=== PATIENT | female | born 1990 | race Caucasian/White ===

== ENCOUNTER 2018-03-22 09:37 | Emergency (ER) | payer BC ==
[2018-03-22 09:44] VITALS: BP 137/73; PULSE 85; RESP 18; TEMP 98.2
[2018-03-22] MEDS ORDERED: TOPICAL SKIN ADHESIVE 1 EACH AMP TOPICAL ONE ×2 (09:53→10:14)
[2018-03-22] MEDS ORDERED: DIPH,PERTUS(ACELL)TETVAC-LF 0.5 ML VIAL IM ONE (09:54)
--- NOTE | 2018-03-22 09:58 | ED ---
Wound/Laceration HPI - General Chief Complaint: Wound/Laceration Stated Complaint: Hand injury Time Seen by Provider: 03/22/18 09:50 Source: patient, RN notes reviewed, old records reviewed Mode of arrival: ambulatory Limitations: no limitations - History of Present Illness Initial Comments: This patient's a 27-year-old female presents emergency Department with left ankle index finger laceration. She reports that she cut her finger on glass. Patient states that she has full range of motion. No nail bed involvement.Patient denies any recent fever, chills, shortness of breath, chest pain, back pain, abdominal pain, nausea vomiting, numbness or tingling, dysuria or hematuria, constipation or diarrhea, headaches or visual changes, or any other current symptoms - Related Data Allergies Allergy/AdvReac Type Severity Reaction Status Date / Time morphine AdvReac Abdominal Verified 03/22/18 09:44 Pain Review of Systems ROS Statement: Those systems with pertinent positive or pertinent negative responses have been documented in the HPI. ROS Other: All systems not noted in ROS Statement are negative. Past Medical History Past Medical History: No Reported History History of Any Multi-Drug Resistant Organisms: None Reported Past Surgical History: No Surgical Hx Reported Past Psychological History: No Psychological Hx Reported Smoking Status: Current every day smoker Past Alcohol Use History: Occasional Past Drug Use History: None Reported General Exam - General Exam Comments Initial Comments: This is a 27-year-old female. Alert and oriented. No significant distress. Limitations: no limitations General appearance: alert, in no apparent distress Head exam: Present: atraumatic, normocephalic, normal inspection Eye exam: Present: normal appearance, PERRL, EOMI. Absent: scleral icterus, conjunctival injection, periorbital swelling ENT exam: Present: normal exam, mucous membranes moist Neck exam: Present: normal inspection. Absent: tenderness, meningismus, lymphadenopathy Respiratory exam: Present: normal lung sounds bilaterally. Absent: respiratory distress, wheezes, rales, rhonchi, stridor Cardiovascular Exam: Present: regular rate, normal rhythm, normal heart sounds. Absent: systolic murmur, diastolic murmur, rubs, gallop, clicks GI/Abdominal exam: Present: soft, normal bowel sounds. Absent: distended, tenderness, guarding, rebound, rigid Extremities exam: Present: normal inspection, full ROM, normal capillary refill. Absent: tenderness, pedal edema, joint swelling, calf tenderness Left Elbow exam: Present: normal inspection, full ROM Forearm Wrist exam: Present: normal inspection, full ROM Hand Wrist exam: Present: full ROM, laceration (Vision is a 1-2 cm superficial laceration over the distal left index finger. No nail bed involvement. Patient is neurovascularly intact.). Absent: normal inspection, tenderness, swelling, abrasion Neuro motor exam: Present: wrist extension intact Vascular: Present: normal capillary refill Back exam: Present: normal inspection Neurological exam: Present: alert, oriented X3, CN II-XII intact Psychiatric exam: Present: normal affect, normal mood Skin exam: Present: warm, dry, intact, normal color. Absent: rash Course Vital Signs 03/22/18 09:41 Temperature 98.2 F Pulse Rate 85 Respiratory 18 Rate Blood Pressure 137/73 O2 Sat by Pulse 98 Oximetry Procedures - Laceration Laceration #1 Site: hand (L index finger) Size (cm): 1 Description: linear Depth: simple, single layer Pre-repair: wound explored, irrigated extensively Type of Sutures: other (dermabond) Patient Tolerated Procedure: well, no complications Medical Decision Making - Medical Decision Making 27-year-old female presents with a left index finger laceration. Cut it on glass. Patient laceration superficial no concern for foreign body. We'll closes with Dermabond. Discussed monitoring for infection. She did soak her finger in warm water and Betadine. Patient was given updated today. Discussed appropriate follow-up. Disposition Clinical Impression: Laceration of index finger of left hand without complication Disposition: HOME SELF-CARE Condition: Good Instructions: Laceration (ED), Skin Adhesive Care (ED) Additional Instructions: Please leave wound covered for the first 24-48 hours and then leave open to air after that time. Please use clean soap and water to clean the area. Allow the skin glue to fall off on its own. Please watch for any signs of infection which may include but not limited to increased pain, swelling, redness, fever or chills. Please return to the emergency room if any signs of infection do occur. Please return to the emergency room for any other concerns or complications. Is patient prescribed a controlled substance at d/c from ED?: No When asked, does pt state using other controlled substances?: No If prescribed controlled substance>3 days was MAPS reviewed?: No If opioid is for acute pain is fill amount 7 days or less?: No If Rx opioid, was Start Talking consent form obtained?: No Referrals: None,Stated [Primary Care Provider] - 1-2 days Elizabeth Adamson MD [STAFF PHYSICIAN] - 1-2 days Time of Disposition: 09:57
== END 2018-03-22 10:22 | disposition home or self-care (01) ==
LOC: EC 09:37
DX: S61.211A Laceration without foreign body of left index finger without damage to nail, initial encounter (principal); F17.200 Nicotine dependence, unspecified, uncomplicated; Z23 Encounter for immunization; Z88.5 Allergy status to narcotic agent; W25.XXXA Contact with sharp glass, initial encounter
CPT/HCPCS: 12001; 90471; 90715; 99283

== ENCOUNTER 2018-08-10 11:24 | Emergency (ER) | payer BC ==
[2018-08-10 11:29] VITALS: TEMP 98.4
--- NOTE | 2018-08-10 11:57 | ED ---
General Adult HPI - General Chief complaint: Extremity Problem,Nontraumatic Stated complaint: Shoulder injury Time Seen by Provider: 08/10/18 11:34 Source: patient, RN notes reviewed Mode of arrival: ambulatory Limitations: no limitations - History of Present Illness Initial comments: Patient 27-year-old female presented to the emergency room today with a chief complaint of right shoulder pain. Does admit that 5 days ago was moving some boxes. Denies any specific injury or trauma. States that she did feel that there was some irritation by the end of night. 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 She does admit that she has felt some increased irritation at work. Patient states that she does have increased pain with any extension or abduction or shoulder height. Patient states that she's been trying anti- inflammatories for pain with some relief. Patient denies any other injury or any other complaints. Patient denies any recent fever, chills, shortness of breath, chest pain, back pain, abdominal pain, nausea or vomiting, numbness or tingling, headaches or visual changes, or any other complaints. - Related Data Home Medications Medication Instructions Recorded Confirmed Ibuprofen [Motrin Ib] 600 mg PO Q6H PRN 03/22/18 08/10/18 Allergies Allergy/AdvReac Type Severity Reaction Status Date / Time morphine AdvReac CONSTIPATIO Verified 08/10/18 11:43 N Review of Systems ROS Statement: Those systems with pertinent positive or pertinent negative responses have been documented in the HPI. ROS Other: All systems not noted in ROS Statement are negative. Past Medical History Past Medical History: No Reported History History of Any Multi-Drug Resistant Organisms: None Reported Past Surgical History: No Surgical Hx Reported Past Psychological History: No Psychological Hx Reported Smoking Status: Former smoker Past Alcohol Use History: Occasional Past Drug Use History: None Reported General Exam - General Exam Comments Initial Comments: General: The patient is awake and alert, in no distress, and does not appear acutely ill. Neck: The neck is supple, there is no tenderness or JVD. Cardiovascular: There is a regular rate and rhythm. No murmur, rub or gallop is appreciated. Respiratory: Lungs are clear to auscultation, respirations are non-labored, breath sounds are equal. No wheezes, stridor, rales, or rhonchi. Musculoskeletal: Patient does have normal appearance the right shoulder no obvious deformity. She shows limited range of motion due to pain. Pain is reproduced with extension and abduction greater than 90. Patient strength is 4 /5 due to pain. Patient sensations are intact. Radial pulses 2+. Lesions are intact. Sensations are intact. Neurological: A&O x 3. CN II-XII intact, There are no obvious motor or sensory deficits. Coordination appears grossly intact. Speech is normal. Skin: Skin is warm and dry and no rashes or lesions are noted. Psychiatric: Normal mood and affect. Limitations: no limitations Course Vital Signs 08/10/18 11:28 Temperature 98.4 F Pulse Rate 90 Respiratory 20 Rate Blood Pressure 113/75 O2 Sat by Pulse 98 Oximetry Medical Decision Making - Medical Decision Making Patient presenting for right shoulder pain is worse with movements. Does admit that she was moving boxes over the weekend. 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 She states pain is worse with movements. She tried anti-inflammatories at home. Denies any other injury. Options were discussed with patient about imaging here in the emergency room she has declined. She states she does not feel it is necessary. At this time is advised patient that she should continue anti-inflammatories will provide prescription for naproxen. She is advised to follow-up with orthopedics for the symptoms. Advised to try to rest area as much as possible. Advised return for any other concerns. Disposition Clinical Impression: Shoulder pain Disposition: HOME SELF-CARE Condition: Good Instructions: Tendinitis (ED) Additional Instructions: Please use medication as discussed. Please follow-up with orthopedic/family doctor in the next 2 days of symptoms have not improved. Please return to emergency room if the symptoms increase or worsen or for any other concerns. Is patient prescribed a controlled substance at d/c from ED?: No Referrals: None,Stated [Primary Care Provider] - 1-2 days Rudy Carroll MD [STAFF PHYSICIAN] - 1-2 days Zoë William MD [REFERRING] - 1-2 days Time of Disposition: 12:02
[2018-08-10 12:32] VITALS: BP 129/81; PULSE 89; RESP 18
== END 2018-08-10 12:30 | disposition home or self-care (01) ==
LOC: EC 11:24
DX: M25.511 Pain in right shoulder (principal); Z88.5 Allergy status to narcotic agent; Z87.891 Personal history of nicotine dependence; Z53.29 Procedure and treatment not carried out because of patient's decision for other reasons
CPT/HCPCS: 99283

== ENCOUNTER 2018-11-11 06:44 | Emergency (ER) | payer BC ==
--- NOTE | 2018-11-11 07:43 | ED ---
General Adult HPI - General Chief complaint: Back Pain/Injury Stated complaint: back pain Time Seen by Provider: 11/11/18 07:17 Source: patient, RN notes reviewed Mode of arrival: ambulatory Limitations: no limitations - History of Present Illness Initial comments: Patient is a pleasant 27-year-old female presenting to the emergency Department with low back pain. Patient did have similar symptoms once several months ago associated with urinary tract infection. Patient denies any dysuria or hematuria or frequency. No pelvic pain. No abdominal pain. No neck pain. No fevers. Patient states discomfort is positional. Discomfort is right lower back, Lumbar region. No incontinence or retention of bowel or bladder. No leg weakness. - Related Data Home Medications Medication Instructions Recorded Confirmed Ibuprofen [Motrin Ib] 600 mg PO Q6H PRN 03/22/18 11/11/18 Previous Rx's Medication Instructions Recorded Cyclobenzaprine [Flexeril] 10 mg PO TID PRN #12 tablet 11/11/18 Ibuprofen [Motrin] 600 mg PO Q6HR PRN #20 tab 11/11/18 Sulfamethox-Tmp 800-160Mg [Bactrim 1 each PO Q12HR #14 tab 11/11/18 DS 800-160 mg] Allergies Allergy/AdvReac Type Severity Reaction Status Date / Time morphine AdvReac CONSTIPATIO Verified 11/11/18 07:52 N Review of Systems ROS Statement: Those systems with pertinent positive or pertinent negative responses have been documented in the HPI. ROS Other: All systems not noted in ROS Statement are negative. Constitutional: Denies: fever, chills Eyes: Denies: eye pain ENT: Denies: ear pain Respiratory: Denies: cough, dyspnea Cardiovascular: Denies: chest pain Endocrine: Denies: fatigue Gastrointestinal: Denies: abdominal pain, nausea, vomiting Genitourinary: Denies: urgency, dysuria, frequency, hematuria Musculoskeletal: Reports: as per HPI, back pain Skin: Denies: rash Neurological: Denies: weakness Past Medical History Past Medical History: No Reported History History of Any Multi-Drug Resistant Organisms: None Reported Past Surgical History: No Surgical Hx Reported Past Psychological History: No Psychological Hx Reported Smoking Status: Former smoker Past Alcohol Use History: Occasional Past Drug Use History: Marijuana General Exam Limitations: no limitations General appearance: alert, in no apparent distress Head exam: Present: atraumatic Eye exam: Present: normal appearance, PERRL ENT exam: Present: normal oropharynx Neck exam: Present: normal inspection Respiratory exam: Present: normal lung sounds bilaterally Cardiovascular Exam: Present: regular rate, normal rhythm Expanded Peripheral pulses: 2+: Posterior Tibialis (R), Posterior Tibialis (L), Dorsalis Pedis (R), Dorsalis Pedis (L) GI/Abdominal exam: Present: soft, normal bowel sounds. Absent: distended, tenderness, guarding, rebound, rigid, pulsatile mass Extremities exam: Present: normal inspection. Absent: pedal edema, calf tenderness Back exam: Present: tenderness (Mild tenderness lower right paralumbar region) Neurological exam: Present: alert. Absent: motor sensory deficit Expanded Sensory exam: Lower Extremity Light Touch: Normal Motor strength exam: RLE: 5, LLE: 5 Psychiatric exam: Present: normal affect, normal mood Skin exam: Present: normal color Course Vital Signs 11/11/18 06:48 Temperature 98.3 F Pulse Rate 103 H Respiratory 18 Rate Blood Pressure 139/81 O2 Sat by Pulse 100 Oximetry Medical Decision Making - Medical Decision Making Patient reevaluated and updated. Patient will be treated with antibiotics for possible urinary tract infection. Patient symptoms are felt to likely be from muscular skeletal origin however. Patient is updated regarding this as well as need for follow-up. - Lab Data Lab Results 11/11/18 Range/Units 07:26 Urine Color Yellow Urine Appearance Cloudy H (Clear) Urine pH 6.5 (5.0-8.0) Ur Specific Ackerman 1.019 (1.001-1.035) Urine Protein Trace H (Negative) Urine Glucose (UA) Negative (Negative) Urine Ketones Negative (Negative) Urine Blood Trace H (Negative) Urine Nitrite Negative (Negative) Urine Bilirubin Negative (Negative) Urine Urobilinogen <2.0 (<2.0) mg/dL Ur Leukocyte Esterase Large H (Negative) Urine RBC 11 H (0-5) /hpf Ur Squamous Epith Cells 18 H (0-4) /hpf Urine Mucus Rare H (None) /hpf Disposition Clinical Impression: Low back pain Disposition: HOME SELF-CARE Condition: Stable Instructions (If sedation given, give patient instructions): Acute Low Back Pain (ED) Additional Instructions: Please follow-up with primary care physician in the beginning of the week. Have primary care physician follow-up regarding urine culture results. Return for loss of control of bowel or bladder, weakness, fevers, abdominal pain, worsening or changing symptoms or other concerns. Prescriptions: Cyclobenzaprine [Flexeril] 10 mg PO TID PRN #12 tablet PRN Reason: Pain Ibuprofen [Motrin] 600 mg PO Q6HR PRN #20 tab PRN Reason: Pain Sulfamethox-Tmp 800-160Mg [Bactrim DS 800-160 mg] 1 each PO Q12HR #14 tab Is patient prescribed a controlled substance at d/c from ED?: No Referrals: Elizabeth Adamson MD [STAFF PHYSICIAN] - 1-2 days Time of Disposition: 08:26
[2018-11-11 07:44] LABS: Appearance,Urine Cloudy (Clear); Bilirubin,Urine Negative (Negative); Blood,Urine Trace (Negative); Color,Urine Yellow; Glucose,Urine (UA) Negative (Negative); Ketones,Urine Negative (Negative); Leukocyte Esterase,Urine Large (Negative); Mucus,Urine Rare /hpf; Nitrite,Urine Negative (Negative); PH, Urine 6.5 (5.0-8.0); Protein,Urine Trace (Negative); RBC,Urine 11 /hpf (0-5); Specific Gravity,Urine 1.019 (1.001-1.035); Squamous Epithelial Cell,Urine 18 /hpf (0-4); Urobilinogen,Urine <2.0 mg/dL (<2.0)
[2018-11-11] MEDS ORDERED: KETOROLAC 60 MG/2 ML VIAL IM STA (08:26)
[2018-11-11 08:48] VITALS: BP 136/75; PULSE 75; RESP 16; TEMP 98
== END 2018-11-11 08:46 | disposition home or self-care (01) ==
LOC: EC 06:44
DX: M54.5 Low back pain (principal); Z87.891 Personal history of nicotine dependence; Z88.5 Allergy status to narcotic agent
CPT/HCPCS: 81001; 87086; 99283; 96372; J1885

== ENCOUNTER 2020-08-19 07:28 | Emergency (ER) | payer BC ==
[2020-08-19] MEDS ORDERED: SODIUM CHLORIDE 0.9% 500 ML 500 ML IV STA (08:15)
[2020-08-19] MEDS ORDERED: KETOROLAC 15 MG/ML 1 ML VIAL IVP STA (08:15)
[2020-08-19 08:37] LABS: Basophils # (A) 0.1 k/uL (0-0.2); Basophils % (A) 1 %; Eosinophils # (A) 0.2 k/uL (0-0.7); Eosinophils % (A) 2 %; HCT 42.3 % (34.0-46.0); HGB 14.5 gm/dL (11.4-16.0); Lymphocytes # (A) 1.9 k/uL (1.0-4.8); Lymphocytes % (A) 19 %; MCH 29.7 pg (25.0-35.0); MCHC 34.3 g/dL (31.0-37.0); MCV 86.6 fL (80.0-100.0); Mean Platelet Volume 8.7; Monocytes # (A) 0.5 k/uL (0-1.0); Monocytes % (A) 5 %; Neutrophils # (A) 7.4 k/uL (1.3-7.7); Neutrophils % (A) 73 %; Platelet Count 225 k/uL (150-450); RBC 4.89 m/uL (3.80-5.40); RDW 12.4 % (11.5-15.5); WBC 10.2 k/uL (3.8-10.6)
[2020-08-19 08:42] LABS: Amorphous Sediment,Urine Rare /hpf; Appearance,Urine Clear (Clear); Bacteria,Urine Occasional /hpf; Bilirubin,Urine Negative (Negative); Blood,Urine Small (Negative); Color,Urine Light Yellow; Glucose,Urine (UA) Negative (Negative); Ketones,Urine Negative (Negative); Leukocyte Esterase,Urine Small (Negative); Mucus,Urine Rare /hpf; Nitrite,Urine Negative (Negative); PH, Urine 6.5 (5.0-8.0); Protein,Urine Negative (Negative); RBC,Urine 2 /hpf (0-5); Specific Gravity,Urine 1.011 (1.001-1.035); Squamous Epithelial Cell,Urine 5 /hpf (0-4); Urobilinogen,Urine <2.0 mg/dL (<2.0); WBC,Urine 4 /hpf (0-5)
[2020-08-19 08:45] LABS: ALT 17 U/L (4-34); AST 20 U/L (14-36); African American GFR (CKD) >90 (>60 ml/min/1.73 sqM); Alkaline Phosphatase 90 U/L (38-126); Anion Gap 7 mmol/L; Blood Urea Nitrogen 8 mg/dL (7-17); Carbon Dioxide 25 mmol/L (22-30); Chloride 107 mmol/L (98-107); Glucose 101 mg/dL (74-99); Lipase 405 U/L (23-300); Non-African American GFR(CKD) >90 (>60 ml/min/1.73 sqM); Potassium 4.1 mmol/L (3.5-5.1); Sodium 139 mmol/L (137-145); Total Bilirubin 0.5 mg/dL (0.2-1.3); Total Protein 7.2 g/dL (6.3-8.2)
--- NOTE | 2020-08-19 08:49 | ED ---
Abdominal Pain HPI - General Chief Complaint: Abdominal Pain Stated Complaint: back pain Time Seen by Provider: 08/19/20 07:46 Source: patient Mode of arrival: ambulatory Limitations: no limitations - History of Present Illness Initial Comments: Patient is a 29-year-old female presenting to the emergency Department with complaints of right upper quadrant and right flank pain that has been increasing over the past 3 days. Patient states she feels like the pain is underneath her right ribs and also extends to her right side into her right back. She denies any falls or injuries to her right ribs. She denies any abdominal surgeries. She denies being nauseous, vomiting no diarrhea. She states she has been slightly constipated but had a regular bowel movement this morning. She states her pain has been constant, currently rates 7/10. She does do some heavy lifting at work but she states this feels different. She denies history of kidney stones. She has no urinary complaints. She denies being . She has no further complaints at this time. Upon arrival to the ER her vital signs are stable. - Related Data Previous Rx's Medication Instructions Recorded Ibuprofen [Motrin] 600 mg PO Q6HR PRN #20 tab 11/11/18 Allergies Allergy/AdvReac Type Severity Reaction Status Date / Time morphine AdvReac CONSTIPATIO Verified 08/19/20 07:41 N Review of Systems ROS Statement: Those systems with pertinent positive or pertinent negative responses have been documented in the HPI. ROS Other: All systems not noted in ROS Statement are negative. Past Medical History Past Medical History: No Reported History History of Any Multi-Drug Resistant Organisms: None Reported Past Surgical History: No Surgical Hx Reported Past Psychological History: No Psychological Hx Reported Smoking Status: Never smoker Past Alcohol Use History: Occasional Past Drug Use History: Marijuana General Exam - General Exam Comments Initial Comments: GENERAL: Patient is well-developed and well-nourished. Patient is nontoxic and in no acute distress. HEAD: Atraumatic, normocephalic. EYES: Pupils equal round and reactive to light, extraocular movements intact, sclera anicteric, conjunctiva are normal. Eyelids were unremarkable. ENT: TMs normal, nares patent, oropharynx clear without exudates. Moist mucous membranes. NECK: Normal range of motion, supple without lymphadenopathy or JVD. LUNGS: Unlabored respirations. Breath sounds clear to auscultation bilaterally and equal. No wheezes rales or rhonchi. HEART: Regular rate and rhythm without murmurs, rubs or gallops. ABDOMEN: Tender to palpation of the right upper quadrant, right side of the abdomen, right flank. Soft, normoactive bowel sounds. No guarding, no rebound. No masses appreciated. : Deferred MUSCULOSKELETAL: Normal extremities with adequate strength and normal range of motion, no pitting or edema. No clubbing or cyanosis. NEUROLOGICAL: Patient is alert and oriented x 3. Motor and sensory are also intact. Cranial nerves II through XII grossly intact. Symmetrical smile. Normal speech, normal gait. PSYCH: Normal mood, normal affect. SKIN: Warm, Dry, normal turgor, no rashes or lesions noted. Limitations: no limitations Course Vital Signs 08/19/20 07:38 Temperature 99.9 F H Pulse Rate 77 Respiratory 18 Rate Blood Pressure 118/73 O2 Sat by Pulse 99 Oximetry Medical Decision Making - Medical Decision Making Patient is a 29-year-old female here with right upper quadrant, right flank pain increasing over the past 3 days. Her vital signs are stable. Her labs reveal normal white count, kidney function is normal. Urine reveals a small amount of blood, rare bacteria, hCG is negative. Lipase is 405. CT shows no acute process at this time, no kidney stones, no acute cholecystitis. Patient is given some fluids, pain control, she is resting comfortably. I discussed these findings with the patient. I will give her referral for GI specialist to follow up regarding possible biliary colic. She can continue Tylenol or Motrin for discomfort. She is stable for discharge. Return parameters were discussed with the patient she verbalized understanding. Case discussed with Dr. Sanon. - Lab Data Result diagrams: 08/19/20 08:21 08/19/20 08:21 Lab Results 08/19/20 08/19/20 08/19/20 Range/Units 08:21 08:21 08:21 WBC 10.2 (3.8-10.6) k/uL RBC 4.89 (3.80-5.40) m/uL Hgb 14.5 (11.4-16.0) gm/dL Hct 42.3 (34.0-46.0) % MCV 86.6 (80.0-100.0) fL MCH 29.7 (25.0-35.0) pg MCHC 34.3 (31.0-37.0) g/dL RDW 12.4 (11.5-15.5) % Plt Count 225 (150-450) k/uL Neutrophils % 73 % Lymphocytes % 19 % Monocytes % 5 % Eosinophils % 2 % Basophils % 1 % Neutrophils # 7.4 (1.3-7.7) k/uL Lymphocytes # 1.9 (1.0-4.8) k/uL Monocytes # 0.5 (0-1.0) k/uL Eosinophils # 0.2 (0-0.7) k/uL Basophils # 0.1 (0-0.2) k/uL Sodium (137-145) mmol/L Potassium (3.5-5.1) mmol/L Chloride (98-107) mmol/L Carbon Dioxide (22-30) mmol/L Anion Gap mmol/L BUN (7-17) mg/dL Creatinine (0.52-1.04) mg/dL Est GFR (CKD-EPI)AfAm (>60 ml/min/1.73 sqM) Est GFR (CKD-EPI)NonAf (>60 ml/min/1.73 sqM) Glucose (74-99) mg/dL Calcium (8.4-10.2) mg/dL Total Bilirubin (0.2-1.3) mg/dL AST (14-36) U/L ALT (4-34) U/L Alkaline Phosphatase (38-126) U/L Total Protein (6.3-8.2) g/dL Albumin (3.5-5.0) g/dL Lipase (23-300) U/L Urine Color Light Yellow Urine Appearance Clear (Clear) Urine pH 6.5 (5.0-8.0) Ur Specific Carter 1.011 (1.001-1.035) Urine Protein Negative (Negative) Urine Glucose (UA) Negative (Negative) Urine Ketones Negative (Negative) Urine Blood Small H (Negative) Urine Nitrite Negative (Negative) Urine Bilirubin Negative (Negative) Urine Urobilinogen <2.0 (<2.0) mg/dL Ur Leukocyte Esterase Small H (Negative) Urine RBC 2 (0-5) /hpf Urine WBC 4 (0-5) /hpf Ur Squamous Epith Cells 5 H (0-4) /hpf Amorphous Sediment Rare H (None) /hpf Urine Bacteria Occasional H (None) /hpf Urine Mucus Rare H (None) /hpf Urine HCG, Qual Not Detected (Not Detectd) 08/19/20 Range/Units 08:21 WBC (3.8-10.6) k/uL RBC (3.80-5.40) m/uL Hgb (11.4-16.0) gm/dL Hct (34.0-46.0) % MCV (80.0-100.0) fL MCH (25.0-35.0) pg MCHC (31.0-37.0) g/dL RDW (11.5-15.5) % Plt Count (150-450) k/uL Neutrophils % % Lymphocytes % % Monocytes % % Eosinophils % % Basophils % % Neutrophils # (1.3-7.7) k/uL Lymphocytes # (1.0-4.8) k/uL Monocytes # (0-1.0) k/uL Eosinophils # (0-0.7) k/uL Basophils # (0-0.2) k/uL Sodium 139 (137-145) mmol/L Potassium 4.1 (3.5-5.1) mmol/L Chloride 107 (98-107) mmol/L Carbon Dioxide 25 (22-30) mmol/L Anion Gap 7 mmol/L BUN 8 (7-17) mg/dL Creatinine 0.44 L (0.52-1.04) mg/dL Est GFR (CKD-EPI)AfAm >90 (>60 ml/min/1.73 sqM) Est GFR (CKD-EPI)NonAf >90 (>60 ml/min/1.73 sqM) Glucose 101 H (74-99) mg/dL Calcium 9.0 (8.4-10.2) mg/dL Total Bilirubin 0.5 (0.2-1.3) mg/dL AST 20 (14-36) U/L ALT 17 (4-34) U/L Alkaline Phosphatase 90 (38-126) U/L Total Protein 7.2 (6.3-8.2) g/dL Albumin 4.0 (3.5-5.0) g/dL Lipase 405 H (23-300) U/L Urine Color Urine Appearance (Clear) Urine pH (5.0-8.0) Ur Specific Carter (1.001-1.035) Urine Protein (Negative) Urine Glucose (UA) (Negative) Urine Ketones (Negative) Urine Blood (Negative) Urine Nitrite (Negative) Urine Bilirubin (Negative) Urine Urobilinogen (<2.0) mg/dL Ur Leukocyte Esterase (Negative) Urine RBC (0-5) /hpf Urine WBC (0-5) /hpf Ur Squamous Epith Cells (0-4) /hpf Amorphous Sediment (None) /hpf Urine Bacteria (None) /hpf Urine Mucus (None) /hpf Urine HCG, Qual (Not Detectd) Disposition Clinical Impression: Right upper quadrant pain Disposition: HOME SELF-CARE Condition: Stable Instructions (If sedation given, give patient instructions): Abdominal Pain (ED) Additional Instructions: Please return to the Emergency Department if symptoms worsen or any other concerns. Alternate between Tylenol and Motrin for discomfort. Follow up with GI as discussed if symptoms persist. Is patient prescribed a controlled substance at d/c from ED?: No Referrals: None,Stated [Primary Care Provider] - 1-2 days Hayder Menon MD [STAFF PHYSICIAN] - 1-2 days
--- NOTE | 2020-08-19 08:58 | CT ---
EXAMINATION TYPE: CT abdomen pelvis wo con DATE OF EXAM: 08/19/2020 HISTORY: Rt flank pain CT DLP: 1464.4 mGycm. Automated Exposure Control for Dose Reduction was Utilized. TECHNIQUE: CT scan of the abdomen and pelvis is performed without oral or IV contrast. COMPARISON: NONE FINDINGS: Within the limitations of a non-contrast study, the following observations are made. LUNG BASES: No significant abnormality is appreciated. LIVER/GB: No significant abnormality is appreciated. PANCREAS: No significant abnormality is seen. SPLEEN: No significant abnormality is seen. ADRENALS: No significant abnormality is seen. KIDNEYS: No renal stones or hydronephrosis is present bilaterally. BOWEL: Appendix measures upper limits of normal size 5 to 6 mm coronal image 55, it is slightly poorl y defined but there is some artifact at this level related to patient's large body habitus. No defini tive surrounding fluid or fat stranding. No suspicious small or large bowel dilatation. GENITAL ORGANS: Anteverted uterus central metallic IUD. Left ovary is 3.9 cm low dense lesion probabl e ovarian cyst approximately 127 LYMPH NODES: No greater than 1cm abdominal or pelvic lymph nodes are appreciated. Some prominent but subcentimeter predominantly left-sided mesenteric lymph nodes. For reference 10 x 9 mm left mid to lo wer abdominal lymph node axial image 96 noted. OSSEOUS STRUCTURES: Slight levoconvex scoliotic curvature centered L4 level. Mild facet arthropathy l ower lumbar spine. OTHER: Tiny fat-containing umbilical hernia. IMPRESSION: No renal stones or hydronephrosis is seen bilaterally. No suspicious acute findings clear ly seen.
[2020-08-19 10:15] VITALS: BP 110/67; PULSE 67; RESP 14; TEMP 97.6
== END 2020-08-19 10:16 | disposition home or self-care (01) ==
LOC: EC 07:28
DX: R10.11 Right upper quadrant pain (principal); M54.9 Dorsalgia, unspecified; Z88.5 Allergy status to narcotic agent
CPT/HCPCS: 36415; 80053; 83690; 85025; 81001; 81025; 74176; 99284; 96374; J1885

== ENCOUNTER 2020-10-13 17:18 | Emergency (ER) | payer SELFPAY ==
[2020-10-13 17:34] VITALS: BP 111/68; PULSE 91; RESP 18; TEMP 98.4
[2020-10-13] MEDS ORDERED: IBUPROFEN 600 MG TAB PO STA (18:00)
[2020-10-13] MEDS ORDERED: PENICILLIN VK 500MG STARTER 4 TAB BTL PO STA (18:00)
--- NOTE | 2020-10-13 18:01 | ED ---
General Adult HPI - General Chief complaint: Dental/Oral Stated complaint: Dental Pain Time Seen by Provider: 10/13/20 17:38 Source: patient, RN notes reviewed Mode of arrival: ambulatory Limitations: no limitations - History of Present Illness Initial comments: 29-year-old female presents to the emergency room for dental pain. Patient reports she has had left lower dental pain for about 8 days now. States it is painful to bite down. She denies any swelling. She denies any difficulty swallowing, neck stiffness, or fevers. She states she did call one dentist who said it would be a while better and so has otherwise not had to follow-up. She does not currently have a dentist. Patient denies any chance of . Patient has no other complaints at this time including shortness of breath, chest pain, abdominal pain, nausea or vomiting, headache, or visual changes. - Related Data Previous Rx's Medication Instructions Recorded Ibuprofen [Motrin] 600 mg PO Q6HR PRN #20 tab 11/11/18 Penicillin V Potassium [Pen Vee K] 500 mg PO Q6H 10 Days #40 tablet 10/13/20 Allergies Allergy/AdvReac Type Severity Reaction Status Date / Time morphine AdvReac CONSTIPATIO Verified 10/13/20 17:32 N Review of Systems ROS Statement: Those systems with pertinent positive or pertinent negative responses have been documented in the HPI. ROS Other: All systems not noted in ROS Statement are negative. Past Medical History Past Medical History: No Reported History History of Any Multi-Drug Resistant Organisms: None Reported Past Surgical History: No Surgical Hx Reported Past Psychological History: No Psychological Hx Reported Smoking Status: Never smoker Past Alcohol Use History: Occasional Past Drug Use History: Marijuana General Exam Limitations: no limitations General appearance: alert, in no apparent distress Head exam: Present: atraumatic Eye exam: Present: normal appearance ENT exam: Present: mucous membranes moist. Absent: normal oropharynx (Patient has poor dentition noted. Tenderness noted to tooth 18 with palpation with tongue blade. No evidence for periapical abscess with direct visualization or palpation of gumline. No sublingual edema or facial edema.) Neck exam: Present: normal inspection, full ROM. Absent: tenderness, meningismus, lymphadenopathy Respiratory exam: Present: normal lung sounds bilaterally. Absent: respiratory distress Cardiovascular Exam: Present: regular rate, normal rhythm Neurological exam: Present: alert Course Vital Signs 10/13/20 17:32 Temperature 98.4 F Pulse Rate 91 Respiratory 18 Rate Blood Pressure 111/68 O2 Sat by Pulse 97 Oximetry Medical Decision Making - Medical Decision Making Vitals are stable. Patient is afebrile. She is well-appearing. Each time physical exam is documented. Denying . Patient will be started on penicillin and given a dose of Motrin here in the emergency room. I did give her dental referrals. She will return for any worsening symptoms which were discussed with her. Disposition Clinical Impression: Pain, dental Disposition: HOME SELF-CARE Condition: Good Instructions (If sedation given, give patient instructions): Toothache (ED) Additional Instructions: Please take Motrin and Tylenol for pain. Please ice the area as well. Take penicillin as directed. Follow-up with dentist as soon as possible. Return to the emergency room for any worsening symptoms. [facility] [address] (existing clients only) New clients: [phone] 1st consult: $50 (includes XRs) Usually 30% less than private dentist for visits after. [employer] Have to pay $50 for Xrays and rest is covered [phone] Prescriptions: Penicillin V Potassium [Pen Vee K] 500 mg PO Q6H 10 Days #40 tablet Is patient prescribed a controlled substance at d/c from ED?: No Referrals: Zoë William MD [REFERRING] - 1-2 days Time of Disposition: 18:01
== END 2020-10-13 18:16 | disposition home or self-care (01) ==
LOC: EC 17:18
DX: K08.89 Other specified disorders of teeth and supporting structures (principal); Z88.5 Allergy status to narcotic agent
CPT/HCPCS: 99282

== ENCOUNTER 2022-05-07 03:54 | Inpatient (IN) | payer OTHER ==
[2022-05-07] MEDS ORDERED: KETOROLAC 15 MG/ML 1 ML VIAL IVP STA (04:40)
[2022-05-07] MEDS ORDERED: ONDANSETRON 4 MG/2 ML VIAL IVP STA (04:40)
[2022-05-07] MEDS ORDERED: SODIUM CHLORIDE 0.9% 500 ML 500 ML IV STA (04:40)
--- NOTE | 2022-05-07 04:43 | ED ---
Abdominal Pain HPI - General Source: patient Mode of arrival: ambulatory Limitations: no limitations - History of Present Illness MD Complaint: abdominal pain Onset/Timin -: days(s) Location: L flank Migration to: no migration Severity: moderate Quality: cramping, aching Consistency: constant Improves With: nothing Worsens With: nothing Associated Symptoms: nausea, vomiting <Óscar Calvert - Last Filed: 05/07/22 07:07> <Micheal Gray - Last Filed: 05/07/22 08:47> - General Chief Complaint: Abdominal Pain Stated Complaint: Vomiting Blood, Discolored Urine, Headache Time Seen by Provider: 05/07/22 04:09 - Related Data Previous Rx's Medication Instructions Recorded Ibuprofen [Motrin] 600 mg PO Q6HR PRN #20 tab 11/11/18 Penicillin V Potassium [Pen Vee K] 500 mg PO Q6H 10 Days #40 tablet 10/13/20 Cephalexin [Keflex] 500 mg PO Q6HR #28 cap 05/07/22 Allergies Allergy/AdvReac Type Severity Reaction Status Date / Time milk Allergy Swelling Verified 05/07/22 04:04 morphine AdvReac CONSTIPATIO Verified 10/13/20 17:32 N Review of Systems ROS Other: All systems not noted in ROS Statement are negative. Constitutional: Reports: fever, chills Respiratory: Reports: cough. Denies: dyspnea Cardiovascular: Denies: chest pain, palpitations, edema Gastrointestinal: Reports: abdominal pain, nausea, vomiting. Denies: diarrhea, constipation, melena, hematochezia Genitourinary: Reports: dysuria, frequency. Denies: hematuria, discharge Musculoskeletal: Denies: back pain Skin: Denies: rash Neurological: Denies: headache, weakness, numbness <Óscar Calvert - Last Filed: 05/07/22 07:07> ROS Other: All systems not noted in ROS Statement are negative. <Micheal Gray - Last Filed: 05/07/22 08:47> ROS Statement: Those systems with pertinent positive or pertinent negative responses have been documented in the HPI. Past Medical History Past Medical History: No Reported History Additional Past Medical History / Comment(s): kidney infections History of Any Multi-Drug Resistant Organisms: None Reported Past Surgical History: No Surgical Hx Reported Past Psychological History: No Psychological Hx Reported Smoking Status: Current every day smoker Past Alcohol Use History: Occasional Past Drug Use History: Marijuana <Óscar Calvert - Last Filed: 05/07/22 07:07> General Exam Limitations: no limitations General appearance: alert, in no apparent distress Head exam: Present: atraumatic, normocephalic Eye exam: Present: normal appearance. Absent: scleral icterus, conjunctival injection Respiratory exam: Present: normal lung sounds bilaterally. Absent: respiratory distress, wheezes, rales, rhonchi, stridor Cardiovascular Exam: Present: normal rhythm, tachycardia, normal heart sounds. Absent: systolic murmur, diastolic murmur, rubs, gallop GI/Abdominal exam: Present: soft. Absent: distended, tenderness, guarding, rebound, rigid, mass, pulsatile mass, hernia Extremities exam: Present: normal inspection, normal capillary refill. Absent: pedal edema, calf tenderness Back exam: Present: normal inspection, CVA tenderness (L). Absent: CVA tenderness (R) Neurological exam: Present: alert Skin exam: Present: warm, dry, intact, normal color. Absent: rash <Óscar Calvert - Last Filed: 05/07/22 07:07> Course Vital Signs 05/07/22 05/07/22 03:59 07:32 Temperature 100 F H 101.3 F H Pulse Rate 118 H 108 H Respiratory 24 16 Rate Blood Pressure 116/77 114/61 O2 Sat by Pulse 100 100 Oximetry Medical Decision Making - Lab Data Result diagrams: 05/07/22 04:41 05/07/22 04:40 <Óscar Calvert - Last Filed: 05/07/22 07:07> - Lab Data Result diagrams: 05/07/22 04:41 05/07/22 04:40 <Micheal Gray - Last Filed: 05/07/22 08:47> - Medical Decision Making Patient care signed out to me by previous shift physician, Dr. Calvert. Briefly, patient 31-year-old female presents to emergency department for left-sided flank pain. She also has had constitutional symptoms. Laboratory evaluation obtained. Leukocytosis of 23.5. Urinalysis consistent with urinary tract infection. Parents was to follow-up with pending CT imaging. CT imaging shows mild to moderate left-sided stranding suggestive of pyelonephritis. Patient reevaluated bedside at 8 45 AM states that she is feeling significantly ill. Disposition options were discussed, patient is agreeable for admission. Case discussed with son physician group who is willing to accept patients care. Patient had a radial received ceftriaxone, analgesics and antipyretics. (Micheal Grya) - Lab Data Lab Results 05/07/22 05/07/22 05/07/22 Range/Units 04:40 04:41 04:54 WBC 23.5 H (3.8-10.6) k/uL RBC 4.66 (3.80-5.40) m/uL Hgb 13.5 (11.4-16.0) gm/dL Hct 39.9 (34.0-46.0) % MCV 85.7 (80.0-100.0) fL MCH 28.9 (25.0-35.0) pg MCHC 33.7 (31.0-37.0) g/dL RDW 12.6 (11.5-15.5) % Plt Count 197 (150-450) k/uL MPV 9.4 Neutrophils % 89 % Lymphocytes % 4 % Monocytes % 6 % Eosinophils % 0 % Basophils % 0 % Neutrophils # 20.8 H (1.3-7.7) k/uL Lymphocytes # 0.9 L (1.0-4.8) k/uL Monocytes # 1.4 H (0-1.0) k/uL Eosinophils # 0.1 (0-0.7) k/uL Basophils # 0.1 (0-0.2) k/uL Sodium 135 L (137-145) mmol/L Potassium 3.7 (3.5-5.1) mmol/L Chloride 101 (98-107) mmol/L Carbon Dioxide 24 (22-30) mmol/L Anion Gap 10 mmol/L BUN 11 (7-17) mg/dL Creatinine 0.53 (0.52-1.04) mg/dL Est GFR (CKD-EPI)AfAm >90 (>60 ml/min/1.73 sqM) Est GFR (CKD-EPI)NonAf >90 (>60 ml/min/1.73 sqM) Glucose 107 H (74-99) mg/dL Calcium 8.9 (8.4-10.2) mg/dL Total Bilirubin 1.0 (0.2-1.3) mg/dL AST 29 (14-36) U/L ALT 33 (4-34) U/L Alkaline Phosphatase 137 H (38-126) U/L Total Protein 7.4 (6.3-8.2) g/dL Albumin 3.9 (3.5-5.0) g/dL Amylase 35 (30-110) U/L Lipase 16 L (23-300) U/L Urine Color Urine Appearance (Clear) Urine pH (5.0-8.0) Ur Specific [place] (1.001-1.035) Urine Protein (Negative) Urine Glucose (UA) (Negative) Urine Ketones (Negative) Urine Blood (Negative) Urine Nitrite (Negative) Urine Bilirubin (Negative) Urine Urobilinogen (<2.0) mg/dL Ur Leukocyte Esterase (Negative) Urine RBC (0-5) /hpf Urine WBC (0-5) /hpf Ur Squamous Epith Cells (0-4) /hpf Urine Bacteria (None) /hpf Urine Mucus (None) /hpf Urine HCG, Qual (Not Detectd) Coronavirus (PCR) Not Detected (Not Detectd) 05/07/22 05/07/22 Range/Units 06:45 06:45 WBC (3.8-10.6) k/uL RBC (3.80-5.40) m/uL Hgb (11.4-16.0) gm/dL Hct (34.0-46.0) % MCV (80.0-100.0) fL MCH (25.0-35.0) pg MCHC (31.0-37.0) g/dL RDW (11.5-15.5) % Plt Count (150-450) k/uL MPV Neutrophils % % Lymphocytes % % Monocytes % % Eosinophils % % Basophils % % Neutrophils # (1.3-7.7) k/uL Lymphocytes # (1.0-4.8) k/uL Monocytes # (0-1.0) k/uL Eosinophils # (0-0.7) k/uL Basophils # (0-0.2) k/uL Sodium (137-145) mmol/L Potassium (3.5-5.1) mmol/L Chloride (98-107) mmol/L Carbon Dioxide (22-30) mmol/L Anion Gap mmol/L BUN (7-17) mg/dL Creatinine (0.52-1.04) mg/dL Est GFR (CKD-EPI)AfAm (>60 ml/min/1.73 sqM) Est GFR (CKD-EPI)NonAf (>60 ml/min/1.73 sqM) Glucose (74-99) mg/dL Calcium (8.4-10.2) mg/dL Total Bilirubin (0.2-1.3) mg/dL AST (14-36) U/L ALT (4-34) U/L Alkaline Phosphatase (38-126) U/L Total Protein (6.3-8.2) g/dL Albumin (3.5-5.0) g/dL Amylase (30-110) U/L Lipase (23-300) U/L Urine Color Dark Yellow Urine Appearance Cloudy H (Clear) Urine pH 6.0 (5.0-8.0) Ur Specific [place] 1.024 (1.001-1.035) Urine Protein 2+ H (Negative) Urine Glucose (UA) Negative (Negative) Urine Ketones 1+ H (Negative) Urine Blood Moderate H (Negative) Urine Nitrite Negative (Negative) Urine Bilirubin 1+ H (Negative) Urine Urobilinogen >12.0 (<2.0) mg/dL Ur Leukocyte Esterase Large H (Negative) Urine RBC 30 H (0-5) /hpf Urine WBC 73 H (0-5) /hpf Ur Squamous Epith Cells 1 (0-4) /hpf Urine Bacteria Occasional H (None) /hpf Urine Mucus Occasional H (None) /hpf Urine HCG, Qual Not Detected (Not Detectd) Coronavirus (PCR) (Not Detectd) Disposition Is patient prescribed a controlled substance at d/c from ED?: No <Óscar Calvert - Last Filed: 05/07/22 07:07> Decision Time: 08:47 <Micheal Gray - Last Filed: 05/07/22 08:47> Clinical Impression: Pyelonephritis Disposition: ADMITTED IP TO THIS HOSP Condition: Fair Prescriptions: Cephalexin [Keflex] 500 mg PO Q6HR #28 cap Referrals: None,Stated [Primary Care Provider] - 1-2 days
[2022-05-07 05:03] LABS: Basophils # (A) 0.1 k/uL (0-0.2); Basophils % (A) 0 %; Eosinophils # (A) 0.1 k/uL (0-0.7); Eosinophils % (A) 0 %; HCT 39.9 % (34.0-46.0); HGB 13.5 gm/dL (11.4-16.0); Lymphocytes # (A) 0.9 k/uL (1.0-4.8); Lymphocytes % (A) 4 %; MCH 28.9 pg (25.0-35.0); MCHC 33.7 g/dL (31.0-37.0); MCV 85.7 fL (80.0-100.0); Mean Platelet Volume 9.4; Monocytes # (A) 1.4 k/uL (0-1.0); Monocytes % (A) 6 %; Neutrophils # (A) 20.8 k/uL (1.3-7.7); Neutrophils % (A) 89 %; Platelet Count 197 k/uL (150-450); RBC 4.66 m/uL (3.80-5.40); RDW 12.6 % (11.5-15.5); WBC 23.5 k/uL (3.8-10.6)
[2022-05-07 05:14] LABS: ALT 33 U/L (4-34); AST 29 U/L (14-36); African American GFR (CKD) >90 (>60 ml/min/1.73 sqM); Albumin 3.9 g/dL (3.5-5.0); Alkaline Phosphatase 137 U/L (38-126); Amylase 35 U/L (30-110); Anion Gap 10 mmol/L; Blood Urea Nitrogen 11 mg/dL (7-17); Calcium 8.9 mg/dL (8.4-10.2); Carbon Dioxide 24 mmol/L (22-30); Chloride 101 mmol/L (98-107); Glucose 107 mg/dL (74-99); Lipase 16 U/L (23-300); Non-African American GFR(CKD) >90 (>60 ml/min/1.73 sqM); Potassium 3.7 mmol/L (3.5-5.1); Sodium 135 mmol/L (137-145); Total Protein 7.4 g/dL (6.3-8.2)
[2022-05-07] MEDS ORDERED: SODIUM CHLORIDE 0.9% 1,000 ML IV ONE (06:01)
[2022-05-07] MEDS ORDERED: HYDROcodone/APAP 5-325MG 1 EACH TAB PO STA (06:01)
[2022-05-07] MEDS ORDERED: METOCLOPRAMIDE 5 MG/ML 2 ML VIAL IVP STA (06:01)
[2022-05-07 06:58] LABS: Appearance,Urine Cloudy (Clear); Bacteria,Urine Occasional /hpf; Bilirubin,Urine 1+ (Negative); Blood,Urine Moderate (Negative); Color,Urine Dark Yellow; Glucose,Urine (UA) Negative (Negative); Ketones,Urine 1+ (Negative); Leukocyte Esterase,Urine Large (Negative); Mucus,Urine Occasional /hpf; Nitrite,Urine Negative (Negative); Protein,Urine 2+ (Negative); RBC,Urine 30 /hpf (0-5); Specific Gravity,Urine 1.024 (1.001-1.035); Squamous Epithelial Cell,Urine 1 /hpf (0-4); Urobilinogen,Urine >12.0 mg/dL (<2.0); WBC,Urine 73 /hpf (0-5)
--- NOTE | 2022-05-07 07:42 | CT ---
EXAMINATION TYPE: CT abdomen pelvis wo con DATE OF EXAM: 05/07/2022 COMPARISON: 08/19/2020 HISTORY: 31-year-old female Discolored urine, left-sided flank pain, headache, hemoptysis CT DLP: 1439.6 mGycm. Automated exposure control for dose reduction was used. TECHNIQUE: Contiguous axial scanning of the abdomen and pelvis without IV contrast. Coronal and sagit lm reconstructions performed. FINDINGS: Heart normal size without pericardial effusion. Lung bases clear without pleural effusion. Liver enlarged at 19.3 cm versus 18.0 cm, previously now with diminished attenuation of the hepatic p arenchyma. The spleen is larger now measuring 14.4 cm versus 13.0 cm, previously. Noncontrast appearance of the gallbladder, adrenal glands, right kidney, and pancreas within normal l imits. No nephrolithiasis or hydronephrosis. However, there is mild to moderate peripancreatic fat stranding on the left. Some edema tracks down the left retroperitoneum. No dilated small bowel, free fluid, or free air. Normal appendix. No significant stool burden. No pericolonic inflammatory change. Bladder is collapsed. Uterus anteverted. IUD remains peripherally situated along the uterine cavity. Both ovaries are visualized. There is a 5.0 x 4.0 cm cystic lesion of the left ovary versus 4.7 x 3.2 cm back in 2020. Possible recurrent dominant follicle/functional cyst. Reassess in 6-8 weeks with ul trasound to ensure involution. No abnormal fluid collection in the pelvis or pelvic lymphadenopathy. Bones: Mild degenerative disc disease lower thoracic spine. No osseous destructive process. IMPRESSION: 1. Mild to moderate left-sided peripancreatic fat stranding and edema. No renal calculus or hydronep hrosis is seen. Consider pyelonephritis. 2. Hepatosplenomegaly (liver 19.3 cm and spleen 14.4 cm, both increased from 2020). There is also at least moderate hepatic steatosis. Correlate with LFTs, lipid profile, and patient risk factors. 3. A 5.0 x 4.0 cm cyst of the left ovary (versus 4.7 x 3.2 cm back in 2020). Possible recurrent lisy nant follicle/functional cyst. Recommend follow-up pelvic ultrasound in 6-8 weeks to ensure involutio n.
[2022-05-07] MEDS ORDERED: ACETAMINOPHEN TAB 500 MG TAB PO STA (07:45)
[2022-05-07] MEDS ORDERED: NALOXONE 0.4 MG/ML 1 ML VIAL IV PRN (08:43)
--- NOTE | 2022-05-07 10:32 | P.HPIM ---
History of Present Illness Chief Complaint: Left flank pain Patient is a 31-year-old female with no significant past medical she the presents a hospital complaining of left flank pain and some burning sensation. She stated this started 2 days ago and has been progressively getting worse. She does complain of intractable nausea and vomiting and subjective fevers. Currently rates the pain a 7 out of 10. She denies any hematuria, weight loss. In the emergency department urinalysis was collected which showed significant pyuria and rbc. Patient's vital signs were reviewed febrile at 101.3, tachycardic blood pressure stable at 111/57 saturating 90% on room air. CBC reviewed showing leukocytosis 23.5, BNP reviewed sodium 135, glucose 107 lipase level XVI. Urinalysis is reviewed as above serology negative for COVID-19. There is also a left ovary cyst noted with significant stranding around the left kidney. Patient is being admitted to internal medicine Past Medical History Past Medical History: No Reported History Additional Past Medical History / Comment(s): kidney infections History of Any Multi-Drug Resistant Organisms: None Reported Past Surgical History: No Surgical Hx Reported Past Psychological History: No Psychological Hx Reported Smoking Status: Current every day smoker Past Alcohol Use History: Occasional Past Drug Use History: Marijuana Medications and Allergies Home Medications Medication Instructions Recorded Confirmed Type Cephalexin [Keflex] 500 mg PO Q6HR #28 cap 05/07/22 Rx Allergies Allergy/AdvReac Type Severity Reaction Status Date / Time milk Allergy Swelling Verified 05/07/22 04:04 morphine AdvReac CONSTIPATIO Verified 10/13/20 17:32 N Physical Exam Vitals: Vital Signs Temp Pulse Resp BP Pulse Ox 05/07/22 09:10 99.5 F 104 H 18 111/57 98 05/07/22 07:32 101.3 F H 108 H 16 114/61 100 05/07/22 03:59 100 F H 118 H 24 116/77 100 Intake and Output 05/06/22 05/07/22 05/07/22 22:59 06:59 14:59 Other: Weight 122.47 kg Gen. patient is awake alert oriented 3 Cardio normal S1/S2 Respiratory no wheezing or rhonchi appreciated Positive CVA on the left side No pitting edema noticed in the lower extremity Psychiatry in good spirits. Results CBC & Chem 7: 05/07/22 04:41 05/07/22 04:40 Labs: Abnormal Lab Results - Last 24 Hours (Table) 05/07/22 05/07/22 05/07/22 Range/Units 04:40 04:41 06:45 WBC 23.5 H (3.8-10.6) k/uL Neutrophils # 20.8 H (1.3-7.7) k/uL Lymphocytes # 0.9 L (1.0-4.8) k/uL Monocytes # 1.4 H (0-1.0) k/uL Sodium 135 L (137-145) mmol/L Glucose 107 H (74-99) mg/dL Alkaline Phosphatase 137 H (38-126) U/L Lipase 16 L (23-300) U/L Urine Appearance Cloudy H (Clear) Urine Protein 2+ H (Negative) Urine Ketones 1+ H (Negative) Urine Blood Moderate H (Negative) Urine Bilirubin 1+ H (Negative) Ur Leukocyte Esterase Large H (Negative) Urine RBC 30 H (0-5) /hpf Urine WBC 73 H (0-5) /hpf Urine Bacteria Occasional H (None) /hpf Urine Mucus Occasional H (None) /hpf Assessment and Plan Assessment: Assessment: #1 pyelonephritis #2 complicated urinary tract infection #3 sepsis secondary to above #4 ovarian cyst left-sided measuring 5 x 4 #5 hepatic steatosis noted on CT Plan: -Admit to medicine for close monitoring -Aspiration/fall precaution -Obtain urine cultures, urinalysis reviewed -We'll start the patient on 1 g of Rocephin daily -Continue sepsis protocol, blood cultures, IV fluids and antimicrobials -Patient will require a follow-up pelvic ultrasound in 6-8 weeks as recommended by radiology -CT scan reviewed -Computed tomography scan also showing hepatic steatosis we'll correlate with LFTs outpatient follow-up PCP DVT prophylaxis Lovenox
[2022-05-07] MEDS: ONDANSETRON 4 MG/2 ML VIAL IVP PRN (11:36)
[2022-05-07] MEDS: SODIUM CHLORIDE 0.9% 1,000 ML IV SCH (11:36)
[2022-05-07] MEDS: HYDROcodone/APAP 5-325MG 1 EACH TAB PO PRN ×3 (13:26→23:22)
[2022-05-07] MEDS: ACETAMINOPHEN TAB 325 MG TAB PO PRN ×2 (16:21→23:21)
[2022-05-08] MEDS: SODIUM CHLORIDE 0.9% 1,000 ML IV SCH ×2 (00:52→17:03)
[2022-05-08] MEDS: HYDROcodone/APAP 5-325MG 1 EACH TAB PO PRN ×3 (04:55→20:53)
[2022-05-08] MEDS: ACETAMINOPHEN TAB 325 MG TAB PO PRN (05:21)
[2022-05-08 06:07] LABS: Basophils % (A) 0 %; Eosinophils # (A) 0.1 k/uL (0-0.7); Eosinophils % (A) 1 %; HCT 40.8 % (34.0-46.0); HGB 13.3 gm/dL (11.4-16.0); Lymphocytes # (A) 1.4 k/uL (1.0-4.8); Lymphocytes % (A) 8 %; MCH 29.5 pg (25.0-35.0); MCHC 32.6 g/dL (31.0-37.0); MCV 90.5 fL (80.0-100.0); Mean Platelet Volume 9.8; Monocytes % (A) 6 %; Neutrophils # (A) 14.4 k/uL (1.3-7.7); Neutrophils % (A) 83 %; Platelet Count 194 k/uL (150-450); RBC 4.51 m/uL (3.80-5.40); RDW 13.3 % (11.5-15.5); WBC 17.4 k/uL (3.8-10.6)
[2022-05-08 06:22] LABS: African American GFR (CKD) >90 (>60 ml/min/1.73 sqM); Anion Gap 8 mmol/L; Blood Urea Nitrogen 5 mg/dL (7-17); Calcium 8.3 mg/dL (8.4-10.2); Carbon Dioxide 26 mmol/L (22-30); Chloride 102 mmol/L (98-107); Glucose 87 mg/dL (74-99); Non-African American GFR(CKD) >90 (>60 ml/min/1.73 sqM); Potassium 3.8 mmol/L (3.5-5.1); Sodium 136 mmol/L (137-145)
[2022-05-08] MEDS: DOCUSATE 100 MG CAP PO SCH (07:43)
[2022-05-08] MEDS: IBUPROFEN 600 MG TAB PO PRN ×2 (09:55→19:36)
--- NOTE | 2022-05-08 15:21 | P.PN ---
Subjective Progress Note Date: 05/08/22 (delayed charting seen at 0845) Patient's 31-year-old female admitted for pyelonephritis with sepsis. Patient seen and examined at bedside. She is complaining of severe headache. She states her back pain is resolved. She denies any nausea or vomiting she is just overall feeling ill still. 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 We discussed that she should likely be off through Wednesday evening. General: nontoxic, no distress, appears at stated age Derm: warm, dry, multiple tattoos Head: atraumatic, normocephalic, symmetric Eyes: EOMI, no lid lag, anicteric sclera Mouth: no lip lesion, mucous membranes dry Cardiovascular: S1S2 reg, no murmur, positive posterior tibial pulse bilateral, Lungs: CTA bilateral, no rhonchi, no rales , no accessory muscle use Abdominal: soft, nontender to palpation, no guarding, no appreciable organomegaly Ext: no gross muscle atrophy, no edema, no contractures Neuro: CN II-XI grossly intact, no focal neuro deficits Psych: Alert, oriented, appropriate affect Assessment/ plan: Pyelonephritis with sepsis - rocpehin - await cultures - IV fluids Intractable headache -Increased caffeine intake -Treatment culture withdrawal -Tylenol/Motrin Left-sided ovarian cyst -We will need repeat pelvic ultrasound in 6-8 weeks. Hepatic steatosis -Outpatient follow-up DVT prophylaxis: SCDs Disposition: Anticipate home in a.m. If culture results available Objective - Vital Signs Vital signs: Vital Signs Temp 98.6 F 05/08/22 14:00 Pulse 90 05/08/22 14:00 Resp 16 05/08/22 14:00 BP 101/67 05/08/22 14:00 Pulse Ox 97 05/08/22 14:00 FiO2 Intake & Output 05/07/22 05/08/22 05/08/22 18:59 06:59 18:59 Intake Total 950 Balance 950 Weight 122.47 kg Intake: Intake, IV Titration 950 Amount Sodium Chloride 0.9% 1, 900 000 ml @ 75 mls/hr IV . [id number] [id number] Rx#:[id number] cefTRIAXone 1 gm In 50 Sodium Chloride 0.9% 50 ml @ 100 mls/hr IVPB Q24HR HEDY Rx#:[id number] Other: # Voids 2 - Labs CBC & Chem 7: 05/08/22 05:46 05/08/22 05:46 Labs: Abnormal Lab Results - Last 24 Hours (Table) 05/08/22 05/08/22 Range/Units 05:46 05:46 WBC 17.4 H (3.8-10.6) k/uL Neutrophils # 14.4 H (1.3-7.7) k/uL Sodium 136 L (137-145) mmol/L BUN 5 L (7-17) mg/dL Creatinine 0.43 L (0.52-1.04) mg/dL Calcium 8.3 L (8.4-10.2) mg/dL Microbiology - Last 24 Hours (Table) 05/07/22 06:45 Urine Culture - Preliminary Urine,Voided Gram Neg Bacilli
[2022-05-08] MEDS: NICOTINE 21MG/24HR PATCH TRANSDERM SCH (17:02)
[2022-05-08] MEDS: ONDANSETRON 4 MG/2 ML VIAL IVP PRN (19:37)
[2022-05-09] MEDS: SODIUM CHLORIDE 0.9% 1,000 ML IV SCH ×2 (02:03→13:06)
[2022-05-09] MEDS: HYDROcodone/APAP 5-325MG 1 EACH TAB PO PRN (06:05)
[2022-05-09 06:31] LABS: HGB 12.1 gm/dL (11.4-16.0); MCH 29.8 pg (25.0-35.0); MCHC 33.6 g/dL (31.0-37.0); MCV 88.8 fL (80.0-100.0); Mean Platelet Volume 11.2; Platelet Count 211 k/uL (150-450); RBC 4.05 m/uL (3.80-5.40); RDW 13.4 % (11.5-15.5); WBC 19.2 k/uL (3.8-10.6)
[2022-05-09] MEDS: NICOTINE 21MG/24HR PATCH TRANSDERM SCH ×2 (08:12→12:20)
[2022-05-09] MEDS: DOCUSATE 100 MG CAP PO SCH (08:12)
[2022-05-09] MEDS: IBUPROFEN 600 MG TAB PO PRN (08:20)
[2022-05-09 11:38] VITALS: BP 118/79; PULSE 80; RESP 16; TEMP 98.6
--- NOTE | 2022-05-09 14:40 | P.DS ---
Providers Date of admission: 05/07/22 08:43 Expected date of discharge: 05/09/22 Attending physician: Daniele Xiao MD Primary care physician: Stated None Hospital Course: Pyelonephritis with sepsis UTI secondary to E coli Intractable headache Left-sided ovarian cyst Hepatic steatosis Patient's 31-year-old female admitted for pyelonephritis with sepsis. Patient underwent computed tomography scan of the abdomen/pelvis which showed mild to moderate left-sided perinephric fat stranding consistent with pyelonephritis. Patient was treated with Rocephin and had urine cultures drawn. Urine cultures returned positive for E. coli with sensitivity to cephalosporins. Patient was subsequently placed on cefdinir on discharge for a total of 7 days. She will follow up with primary care doctor. I spent 31 minutes coordinating this discharge Gen: awake, alert HEENT: normocephalic, atraumatic, good hearing acuity, moist mucous membranes Resp: good air exchange, breathing comfortably with no accessory muscle use CVS: good distal perfusion x 4, GI: soft, NTTP, ND : no SPT, no CVAT, rios catheter not present MSK: no pitting edema, no clubbing Neuro: non-focal, moving all extremities Psych: cooperative, euthymic mood Patient Condition at Discharge: Good Plan - Discharge Summary New Discharge Prescriptions: New Cefdinir [Omnicef] 300 mg PO Q12HR #14 capsule Acetaminophen Tab [Tylenol] 650 mg PO Q6HR PRN tab PRN Reason: Mild Pain Or Fever > 100.5 Discharge Medication List Acetaminophen Tab [Tylenol] 650 mg PO Q6HR PRN tab 05/09/22 [Rx] Cefdinir [Omnicef] 300 mg PO Q12HR #14 capsule 05/09/22 [Rx] Follow up Appointment(s)/Referral(s): None,Stated [Primary Care Provider] - 1-2 days Patient Instructions/Handouts: Cefdinir (By mouth), Kidney Infection (DC) Discharge Disposition: HOME SELF-CARE
== END 2022-05-09 14:35 | disposition home or self-care (01) | DRG 872 ==
LOC: EC 03:54 → 5NMEDONC 08:43
PROVIDERS: ADMIT Internal Medicine; ATTEND Internal Medicine
DX: A41.51 Sepsis due to Escherichia coli [E. coli] (principal); K92.0 Hematemesis; N12 Tubulo-interstitial nephritis, not specified as acute or chronic; F17.210 Nicotine dependence, cigarettes, uncomplicated; N83.202 Unspecified ovarian cyst, left side; K76.0 Fatty (change of) liver, not elsewhere classified; M54.9 Dorsalgia, unspecified; R51.9 Headache, unspecified; Z20.822 Contact with and (suspected) exposure to COVID-19; Z91.011 Allergy to milk products
CPT/HCPCS: 36415; 74176; 80048; 80053; 81001; 81025; 82150; 83690; 85025; 85027; 87077; 87086; 87186; 87635; 96361; 96365; 96375; 99285

== ENCOUNTER 2023-07-14 11:07 | Emergency (ER) | payer OTHER ==
[2023-07-14 11:45] VITALS: RESP 18
--- NOTE | 2023-07-14 12:37 | ED ---
General Adult HPI - General Chief complaint: Upper Respiratory Infection Stated complaint: cough/congestion Time Seen by Provider: 07/14/23 11:58 Source: patient Mode of arrival: ambulatory Limitations: no limitations - History of Present Illness Initial comments: 32-year-old female presenting to the ED with a chief complaint of cough. Patient states for the past 3 days has had cough, congestion, myalgias. Reports since onset improvement of symptoms however reports that she would like to get checked out to "make sure she doesn't need antibiotics or anything". Also notes due to illness missed work the past 2 days and would like a work note. Denies fever. Denies chest pain or shortness of breath. No other complaints. - Related Data Previous Rx's Medication Instructions Recorded Acetaminophen Tab [Tylenol] 650 mg PO Q6HR PRN tab 05/09/22 Cefdinir [Omnicef] 300 mg PO Q12HR #14 capsule 05/09/22 Allergies Allergy/AdvReac Type Severity Reaction Status Date / Time milk Allergy Swelling Verified 07/14/23 11:33 morphine AdvReac CONSTIPATIO Verified 07/14/23 11:33 N Review of Systems ROS Statement: Those systems with pertinent positive or pertinent negative responses have been documented in the HPI. ROS Other: All systems not noted in ROS Statement are negative. Past Medical History Past Medical History: No Reported History Additional Past Medical History / Comment(s): kidney infections History of Any Multi-Drug Resistant Organisms: None Reported Past Surgical History: No Surgical Hx Reported Past Psychological History: ADD/ADHD Smoking Status: Current every day smoker General Exam Limitations: no limitations General appearance: obese Eye exam: Present: normal appearance Neck exam: Present: normal inspection Respiratory exam: Present: normal lung sounds bilaterally Cardiovascular Exam: Present: regular rate, normal rhythm GI/Abdominal exam: Present: soft Neurological exam: Present: alert, oriented X3 Skin exam: Present: warm, dry Course Vital Signs 07/14/23 07/14/23 11:29 12:06 Temperature 98.7 F Pulse Rate 99 Respiratory 18 18 Rate Blood Pressure 120/57 O2 Sat by Pulse 97 Oximetry Medical Decision Making - Medical Decision Making Was pt. sent in by a medical professional or institution (, PA, COMMERCIAL TITLE EXAMINER, urgent care, hospital, or longterm...) When possible be specific @ -No Did you speak to anyone other than the patient for history (EMS, parent, family, police, friend...)? What history was obtained from this source @ -No Did you review nursing and triage notes (agree or disagree)? Why? @ -I reviewed and agree with nursing and triage notes Were old charts reviewed (outside hosp., previous admission, EMS record, old EKG, old radiological studies, urgent care reports/EKG's, longterm records)? Report findings @ -No old charts were reviewed Differential Diagnosis (chest pain, altered mental status, abdominal pain women, abdominal pain men, vaginal bleeding, weakness, fever, dyspnea, syncope, headache, dizziness, GI bleed, back pain, seizure, CVA, palpatations, mental health, musculoskeletal)? @ -Differential Dyspnea: Coronary syndrome, arrhythmia, tamponade, asthma, COPD, pulmonary embolism, pneumonia, pneumothorax, pulmonary effusion, anaphylaxis, diabetic ketoacidosis, flailed chest, pulmonary contusion, diaphragmatic rupture, anemia, neuromuscular, this is not meant to be an all-inclusive list. EKG interpreted by me (3pts min.). @ -None X-rays interpreted by me (1pt min.). @ -Chest x-ray interpreted by me showing no evidence of pneumonia or other acute process. CT interpreted by me (1pt min.). @ -None done U/S interpreted by me (1pt. min.). @ -None done What testing was considered but not performed or refused? (CT, X-rays, U/S, labs)? Why? @ -None What meds were considered but not given or refused? Why? @ -None Did you discuss the management of the patient with other professionals (professionals i.e. , PA, COMMERCIAL TITLE EXAMINER, lab, RT, psych nurse, social research assistant, change advisor, teacher, airfield services officer, case mgr)? Give summary @ -No Was smoking cessation discussed for >3mins.? @ -No Was critical care preformed (if so, how long)? @ -No Were there social determinants of health that impacted care today? How? (Homelessness, low income, unemployed, alcoholism, drug addiction, transportation, low edu. Level, literacy, decrease access to med. care, correction, rehab)? @ -No Was there de-escalation of care discussed even if they declined (Discuss DNR or withdrawal of care, Hospice)? DNR status @ -No What co-morbidities impacted this encounter? (DM, HTN, Smoking, COPD, CAD, Cancer, CVA, ARF, Chemo, Hep., AIDS, mental health diagnosis, sleep apnea, morbid obesity)? @ -None Was patient admitted / discharged? Hospital course, mention meds given and route, prescriptions, significant lab abnormalities, going to OR and other pertinent info. @ -Discharge 32-year-old female presenting with 3 days of URI symptoms improved since onset. Cephid negative. Chest x-ray shows no evidence of pneumonia. Exam unremarkable. Vital signs stable, afebrile. Symptoms likely viral in nature. Advised supportive care. Discharged home in stable condition. Discussed return precautions with patient who verbalizes agreement. Undiagnosed new problem with uncertain prognosis? @ -No Drug Therapy requiring intensive monitoring for toxicity (Heparin, Nitro, Insulin, Cardizem)? @ -No Were any procedures done? @ -No Diagnosis/symptom? @ -URI Acute, or Chronic, or Acute on Chronic? @ -Acute Uncomplicated (without systemic symptoms) or Complicated (systemic symptoms)? @ -Uncomplicated Side effects of treatment? @ -No Exacerbation, Progression, or Severe Exacerbation? @ -No Poses a threat to life or bodily function? How? (Chest pain, [place], [place], pneumonia, PE, COPD, DKA, ARF, appy, cholecystitis, CVA, Diverticulitis, Homicidal, Suicidal, threat to staff... and all critical care pts) @ -No - Lab Data Lab Results 07/14/23 Range/Units 12:05 Influenza Type A (PCR) Not Detected (Not Detectd) Influenza Type B (PCR) Not Detected (Not Detectd) RSV (PCR) Not Detected (Not Detectd) SARS-CoV-2 (PCR) Not Detected (Not Detectd) Disposition Clinical Impression: Upper respiratory tract infection Disposition: HOME SELF-CARE Condition: Good Instructions (If sedation given, give patient instructions): Upper Respiratory Infection (ED) Additional Instructions: Please return to the Emergency Department if symptoms worsen or any other concerns. Is patient prescribed a controlled substance at d/c from ED?: No Referrals: None,Stated [Primary Care Provider] - 1-2 days Time of Disposition: 13:29
--- NOTE | 2023-07-14 13:18 | XR ---
EXAMINATION TYPE: XR chest 2V DATE OF EXAM: 07/14/2023 1:11 PM COMPARISON: None TECHNIQUE: XR chest 2V Frontal and lateral views of the chest. CLINICAL INDICATION:Female, 32 years old with history of r/o pna; FINDINGS: Lungs/Pleura: There is no evidence of pleural effusion, focal consolidation, or pneumothorax. Pulmonary vascularity: Unremarkable. Heart/mediastinum: Cardiomediastinal silhouette is unremarkable. Musculoskeletal: No acute osseous pathology. IMPRESSION: No acute cardiopulmonary disease/process.
[2023-07-14 13:57] VITALS: BP 136/84; PULSE 82; TEMP 97.9
== END 2023-07-14 13:57 | disposition home or self-care (01) ==
LOC: EC 11:07
DX: J06.9 Acute upper respiratory infection, unspecified (principal); F17.200 Nicotine dependence, unspecified, uncomplicated; Z88.5 Allergy status to narcotic agent; Z91.011 Allergy to milk products; Z20.822 Contact with and (suspected) exposure to COVID-19
CPT/HCPCS: 71046; 87636; 99284

== ENCOUNTER 2023-12-11 23:06 | Emergency (ER) | payer OTHER ==
--- NOTE | 2023-12-12 00:08 | ED ---
Female Urogenital HPI - General Chief complaint: Vaginal Bleeding Stated complaint: CRAMPS, BLEEDING Time Seen by Provider: 12/12/23 00:07 Source: patient Mode of arrival: wheelchair Limitations: no limitations - History of Present Illness Initial comments: 32-year-old female presenting with chief complaint of vaginal bleeding. Patient has had heavy vaginal bleeding ongoing for the last 5 days. She states that for the last 2 months she has had irregular periods and her last normal period was at the end of August. States that she has an IUD currently which she states has been present for several years, somewhere around 10 years. Patient came in tonight due to worsening pain. She states that she has never been . - Related Data Previous Rx's Medication Instructions Recorded Acetaminophen Tab [Tylenol] 650 mg PO Q6HR PRN tab 05/09/22 Cefdinir [Omnicef] 300 mg PO Q12HR #14 capsule 05/09/22 Cephalexin [Keflex] 500 mg PO Q6HR 7 Days #28 cap 12/12/23 Allergies Allergy/AdvReac Type Severity Reaction Status Date / Time milk Allergy Swelling Verified 12/11/23 23:42 morphine AdvReac CONSTIPATIO Verified 12/11/23 23:42 N Review of Systems ROS Statement: Those systems with pertinent positive or pertinent negative responses have been documented in the HPI. ROS Other: All systems not noted in ROS Statement are negative. Past Medical History Past Medical History: No Reported History Additional Past Medical History / Comment(s): kidney infections History of Any Multi-Drug Resistant Organisms: None Reported Past Surgical History: No Surgical Hx Reported Past Psychological History: ADD/ADHD Smoking Status: Current every day smoker Past Alcohol Use History: None Reported Past Drug Use History: None Reported General Exam - General Exam Comments Initial Comments: Visual Physical Exam Vital signs reviewed General: Well-appearing, nontoxic, no acute distress. Head: Normocephalic, atraumatic Eyes: PERRLA, EOMI ENT: Airway patent Chest: Nonlabored breathing Skin: No visual rash, normal skin tone Neuro: Alert and oriented 3 Musculoskeletal: No gross abnormalities Limitations: no limitations General appearance: alert, in no apparent distress Head exam: Present: atraumatic, normocephalic Eye exam: Present: normal appearance Neck exam: Present: normal inspection Respiratory exam: Absent: respiratory distress Cardiovascular Exam: Present: regular rate External exam: Present: normal external exam Speculum exam: Present: vaginal bleeding, tissue Neurological exam: Present: alert, oriented X3 Psychiatric exam: Present: normal affect, normal mood Skin exam: Present: warm, dry Course Vital Signs 12/11/23 12/12/23 12/12/23 23:40 04:57 07:40 Temperature 98.4 F 97.9 F 98.1 F Pulse Rate 85 91 86 Respiratory 20 18 18 Rate Blood Pressure 108/63 100/64 102/68 O2 Sat by Pulse 100 97 98 Oximetry Medical Decision Making - Medical Decision Making Was pt. sent in by a medical professional or institution (, PA, COLOR CONTROL OPERATOR, urgent care, hospital, or jail...) When possible be specific @ -No Did you speak to anyone other than the patient for history (EMS, parent, family, police, friend...)? What history was obtained from this source @ -No Did you review nursing and triage notes (agree or disagree)? Why? @ -I reviewed and agree with nursing and triage notes Were old charts reviewed (outside hosp., previous admission, EMS record, old EKG, old radiological studies, urgent care reports/EKG's, jail records)? Report findings @ -No old charts were reviewed Differential Diagnosis (chest pain, altered mental status, abdominal pain women, abdominal pain men, vaginal bleeding, weakness, fever, dyspnea, syncope, headache, dizziness, GI bleed, back pain, seizure, CVA, palpatations, mental health, musculoskeletal)? @ -MDM Differential Vaginal Bleeding: Spontaneous , threatened , molar , ectopic , bloody show, incompetent cervix, abruptioplacenta, placenta previa, uterine rupture, dysfunctional uterine bleeding, hemorrhage, uterine fibroids. ... This is not meant to be an all-inclusive list EKG interpreted by me (3pts min.). @ -As above X-rays interpreted by me (1pt min.). @ -None done CT interpreted by me (1pt min.). @ -None done U/S interpreted by me (1pt. min.). @ -Shows thickened endometrial stripe abdominal fluid/tissue. 2.7 cm. Query possible IUD is in the cervix What testing was considered but not performed or refused? (CT, X-rays, U/S, labs)? Why? @ -None What meds were considered but not given or refused? Why? @ -None Did you discuss the management of the patient with other professionals (professionals i.e. DrAyush, PA, COLOR CONTROL OPERATOR, lab, RT, psych nurse, addiction social worker, toll line repairer, teacher, first officer, case picker)? Give summary @ -I spoke with Dr. Connors who came down to evaluate the patient. She performed a pelvic exam and removed tissue from the vaginal vault, likely placental tissue. She advised starting the patient 2g of Ancef and sending the patient home on Keflex. She provided the patient with an order for repeat hCG. She will follow-up in the office with her. Was smoking cessation discussed for >3mins.? @ -No Was critical care preformed (if so, how long)? @ -No Were there social determinants of health that impacted care today? How? (Homelessness, low income, unemployed, alcoholism, drug addiction, transportation, low edu. Level, literacy, decrease access to med. care, [facility], rehab)? @ -No Was there de-escalation of care discussed even if they declined (Discuss DNR or withdrawal of care, Hospice)? DNR status @ -No What co-morbidities impacted this encounter? (DM, HTN, Smoking, COPD, CAD, Cancer, CVA, ARF, Chemo, Hep., AIDS, mental health diagnosis, sleep apnea, morbid obesity)? @ -None Was patient admitted / discharged? Hospital course, mention meds given and route, prescriptions, significant lab abnormalities, going to OR and other pertinent info. @ -This is a 32-year-old female presenting with chief complaint of vaginal bleeding. Ongoing for 5 days. LMP was August. Patient has an IUD in place that has been there for several years, believes that it has been due to to be removed for quite some time. Workup is initiated in triage. Hemoglobin is stable at 12.5. hCG quantitative 21,878.8. Ultrasound showing thickened e ndometrial stripe with complex fluid/tissue at 2.7 cm. There is also IUD within the cervix. On pelvic exam I removed several large clots from the vault, however there was an irregular piece of tissue noted that I had difficulty removing. CUSTOMER TECHNICAL SERVICES MANAGER on-call Dr. Cedeno came down to evaluate the patient. She removed this tissue, states it was likely placental tissue. Patient has no recurrence of bleeding after the tissue was removed. Patient received 2 g of Ancef and will be sent home on Keflex. Patient is provided with an order for repeat beta hCG. She is blood type A+, does not require RhoGAM. She is hemodynamically stable. She will follow-up in the office with Dr. Cedeno. Discharged home. Follow-up with PCP. Report back to ER with any new or worsening symptoms. Discussed return parameters and answered all questions. Patient conveyed verbal understanding and agreed to the plan. I discussed this case in detail with my attending Dr. Horton Undiagnosed new problem with uncertain prognosis? @ -No Drug Therapy requiring intensive monitoring for toxicity (Heparin, Nitro, Insulin, Cardizem)? @ -No Were any procedures done? @ -No Diagnosis/symptom? @ -Spontaneous Acute, or Chronic, or Acute on Chronic? @ -Acute Uncomplicated (without systemic symptoms) or Complicated (systemic symptoms)? @ -Uncomplicated Side effects of treatment? @ -No Exacerbation, Progression, or Severe Exacerbation? @ -No Poses a threat to life or bodily function? How? (Chest pain, [place], [place], pneumonia, PE, COPD, DKA, ARF, appy, cholecystitis, CVA, Diverticulitis, Homicidal, Suicidal, threat to staff... and all critical care pts) @ -Low likelihood - Lab Data Result diagrams: 12/12/23 00:11 Lab Results 12/12/23 12/12/23 12/12/23 Range/Units 00:11 01:00 04:00 WBC 16.8 H (3.8-10.6) k/uL RBC 4.24 (3.80-5.40) m/uL Hgb 12.5 (11.4-16.0) gm/dL Hct 36.2 (34.0-46.0) % MCV 85.2 (80.0-100.0) fL MCH 29.4 (25.0-35.0) pg MCHC 34.5 (31.0-37.0) g/dL RDW 12.8 (11.5-15.5) % Plt Count 190 (150-450) k/uL MPV 9.2 Neutrophils % 82 % Lymphocytes % 11 % Monocytes % 4 % Eosinophils % 2 % Basophils % 0 % Neutrophils # 13.8 H (1.3-7.7) k/uL Lymphocytes # 1.9 (1.0-4.8) k/uL Monocytes # 0.7 (0-1.0) k/uL Eosinophils # 0.3 (0-0.7) k/uL Basophils # 0.1 (0-0.2) k/uL HCG, Quant 68580.8 mIU/mL Blood Type A Positive Blood Type Recheck No Previous Record Bld Type Recheck Status CABO Indicated Antibody Screen NEGATIVE Spec Expiration Date 12/15/20232299 Disposition Clinical Impression: Spontaneous Disposition: HOME SELF-CARE Condition: Fair Instructions (If sedation given, give patient instructions): Miscarriage (ED) Additional Instructions: Activity as tolerated. Diet as tolerated. May shower, but no tub baths for 1 week. No intercourse until seen in the office. Prescriptions: Cephalexin [Keflex] 500 mg PO Q6HR 7 Days #28 cap Is patient prescribed a controlled substance at d/c from ED?: No Referrals: Maame Cedeno DO [Doctor of Osteopathic Medicine] - 12/20/23 (Call office for appointment) None,Stated [Primary Care Provider] - 1-2 days Time of Disposition: 05:23
[2023-12-12 00:27] LABS: Basophils # (A) 0.1 k/uL (0-0.2); Basophils % (A) 0 %; Eosinophils # (A) 0.3 k/uL (0-0.7); Eosinophils % (A) 2 %; HCT 36.2 % (34.0-46.0); HGB 12.5 gm/dL (11.4-16.0); Lymphocytes # (A) 1.9 k/uL (1.0-4.8); Lymphocytes % (A) 11 %; MCH 29.4 pg (25.0-35.0); MCHC 34.5 g/dL (31.0-37.0); MCV 85.2 fL (80.0-100.0); Mean Platelet Volume 9.2; Monocytes # (A) 0.7 k/uL (0-1.0); Monocytes % (A) 4 %; Neutrophils # (A) 13.8 k/uL (1.3-7.7); Neutrophils % (A) 82 %; Platelet Count 190 k/uL (150-450); RBC 4.24 m/uL (3.80-5.40); RDW 12.8 % (11.5-15.5); WBC 16.8 k/uL (3.8-10.6)
--- NOTE | 2023-12-12 03:12 | US ---
EXAM: US Pelvis Transvaginal and US Duplex Arterial/Venous of the Pelvis, Complete CLINICAL HISTORY: ITS.REASON US Reason: vaginal bleeding TECHNIQUE: Real-time transvaginal pelvic ultrasound with image documentation. Transvaginal imaging was used for better evaluation of the endometrium and adnexa. Real-time duplex ultrasound scan of the arterial and venous flow of the pelvis with color Doppler flow and spectral waveform analysis. COMPARISON: CT dated 05/07/22 FINDINGS: Uterus/cervix: Per technologist notes, patient states she has an IUD. Query possible IUD within the cervix. Uterus: 12.6 x 6.3 x 6.7cm. Thickened endometrial strip with complex fluid/tissue, 2.7 cm. No myometrial mass. Right ovary: 4.1 x 2.6 x 2.3cm. No evidence of torsion. Left ovary: 2.3 cm left ovarian follicle/small cyst. 4.3 x 2.4 x 2. 4cm. No evidence of torsion. Free fluid: Small amount of free fluid in the cul-de-sac. Bladder: Empty bladder which cannot be evaluated with this probe. IMPRESSION: 1. Thickened endometrial strip with complex fluid/tissue, 2.7 cm. 2. Query possible IUD within the cervix.
[2023-12-12 05:07] VITALS: RESP 18
--- NOTE | 2023-12-12 05:40 | P.OBCN ---
History of Present Illness Consult date: 12/12/23 Requesting physician: Matt Wilson Reason for consult: other (Heavy vaginal bleeding) Chief complaint: Heavy vaginal bleeding History of present illness: This is a 32-year-old female 1 para 0 with a normal last menstrual period at the end of August 2023, who presents to the emergency room with complaints of spotting ever since the end of September and then heavy bleeding that began about 5 days ago where she was passing large clots and clumps of tissue. Her bleeding increased this evening and when she came into the hospital. She states she has had a Mirena IUD for over 10 years. Her pelvic ultrasound showed a uterus measuring 12.6 x 6.3 x 6.7 cm with complex fluid/endometrial stripe of 2.7 cm. Questionable IUD noted in the cervix. Patient denies knowing that she was . Obstetrical history: . Gynecologic history: No history of sexually transmitted diseases. Her last Pap smear was over 10 years ago when she had the IUD placed. She has not seen a chimney construction supervisor since that time. Review of Systems Constitutional: Denies chills, Denies fever Genitourinary: Reports abnormal vaginal bleeding, Reports menorrhagia, Reports pelvic pain (Cramping) Menstruation: Reports period heavy Past Medical History Additional Past Medical History / Comment(s): kidney infections History of Any Multi-Drug Resistant Organisms: None Reported Past Surgical History: No Surgical Hx Reported Past Psychological History: ADD/ADHD Smoking Status: Current every day smoker (Smokes approximately 2-3 cigars daily) Past Alcohol Use History: None Reported Past Drug Use History: None Reported Medications and Allergies Home Medications Medication Instructions Recorded Confirmed Type Acetaminophen Tab [Tylenol] 650 mg PO Q6HR PRN tab 05/09/22 Rx Cefdinir [Omnicef] 300 mg PO Q12HR #14 capsule 05/09/22 Rx Cephalexin [Keflex] 500 mg PO Q6HR 7 Days #28 cap 12/12/23 Rx Allergies Allergy/AdvReac Type Severity Reaction Status Date / Time milk Allergy Swelling Verified 12/11/23 23:42 morphine AdvReac CONSTIPATIO Verified 12/11/23 23:42 N Exam Osteopathic Statement: *. No significant issues noted on an osteopathic structural exam other than those noted in the History and Physical/Consult. Vital Signs Temp Pulse Resp BP Pulse Ox 12/12/23 04:57 97.9 F 91 18 100/64 97 12/11/23 23:40 98.4 F 85 20 108/63 100 Intake and Output 12/11/23 12/11/23 12/12/23 14:59 22:59 06:59 Other: Voiding Method Toilet Weight 99.79 kg Gen.: Well-developed well-nourished female in no acute distress. Abdomen: Soft, mildly tender in her lower abdomen Speculum exam: Speculum was first placed a large amount of blood and clot came out but then there was noted to be a large amount of issue in the vaginal vault that was removed with a ring forcep. Once this was removed no further bleeding was noted. There was an IUD that was also removed with the tissue. This did appear to be Mirena. The tissue does appear to be placental type tissue with membranes. No actual fetus is visualized. Results Result Diagrams: 12/12/23 00:11 Abnormal Lab Results - Last 24 Hours (Table) 12/12/23 Range/Units 00:11 WBC 16.8 H (3.8-10.6) k/uL Neutrophils # 13.8 H (1.3-7.7) k/uL Assessment and Plan (1) Incomplete Status: Acute Code(s): O03.4 - INCOMPLETE SPONTANEOUS WITHOUT COMPLICATION SNOMED Code(s): 367332133 (2) IUD failure, Status: Acute Code(s): T83.31XA - BREAKDOWN (MECHANICAL) OF INTRAUTERINE CONTRACEP DEV, INIT; Z33.1 - STATE, INCIDENTAL SNOMED Code(s): 406348624 Plan: Patient was advised that it appears that she did already pass the fetus and I have removed a large amount of placental tissue that was sitting in her vaginal vault. Since she is not actively bleeding at this time, I feel that she would be able to follow up with weekly beta hCG levels until 0. She is also given one dose of IV and will be sent home with Keflex 500 mg 4 times a day for 7 days. She also will be given a prescription for a beta hCG level order to view right before she sees me in the office. She is advised no intercourse until beta hCG level is down to 0. She is advised to return to the emergency room if she has any heavy bleeding, fevers, foul-smelling over, or any other concerns.
[2023-12-12 07:54] VITALS: BP 102/68; PULSE 86; TEMP 98.1
== END 2023-12-12 08:04 | disposition home or self-care (01) ==
LOC: EC 23:06
DX: O03.4 Incomplete spontaneous abortion without complication (principal); O99.331 Smoking (tobacco) complicating pregnancy, first trimester; F17.200 Nicotine dependence, unspecified, uncomplicated; Z88.5 Allergy status to narcotic agent; Z91.011 Allergy to milk products; Z3A.00 Weeks of gestation of pregnancy not specified
CPT/HCPCS: 36415; 86900; 86901; 85025; 86850; 84702; 93975; 76830; 99284; 96365; 96366; J0690

== ENCOUNTER 2024-04-12 00:38 | Emergency (ER) | payer OTHER ==
[2024-04-12 00:43] VITALS: RESP 18; TEMP 98.1
--- NOTE | 2024-04-12 00:59 | ED ---
Chest Pain HPI - General Chief Complaint: Chest Pain Stated Complaint: Chest Pain Time Seen by Provider: 04/12/24 00:44 Source: patient, RN notes reviewed Mode of arrival: ambulatory Limitations: no limitations - History of Present Illness Initial Comments: 33-year-old female presenting to the ED with a chief complaint of chest pain. Patient reports for the past week has had intermittent pains on the left side of her chest. Today states pain became worse prompting presentation to the ED for further evaluation. States pain is worse with movement and deep breath. Secondary to the pain, reports that she feels short of breath. Patient denies being on control. Does report that she smokes Black and milds cigarillos on a daily basis. No recent extended car rides or plane rides. Denies abdominal pain. Does note some urinary frequency. No changes in bowel habits. No other complaints at this time. Denies any recent injury or trauma. - Related Data Previous Rx's Medication Instructions Recorded Acetaminophen Tab [Tylenol] 650 mg PO Q6HR PRN tab 05/09/22 Cefdinir [Omnicef] 300 mg PO Q12HR #14 capsule 05/09/22 Cephalexin [Keflex] 500 mg PO Q6HR 7 Days #28 cap 12/12/23 Cephalexin [Keflex] 500 mg PO Q6HR #20 cap 04/12/24 Allergies Allergy/AdvReac Type Severity Reaction Status Date / Time milk Allergy Swelling Verified 04/12/24 00:43 morphine AdvReac CONSTIPATIO Verified 04/12/24 00:43 N Review of Systems ROS Statement: Those systems with pertinent positive or pertinent negative responses have been documented in the HPI. ROS Other: All systems not noted in ROS Statement are negative. Past Medical History Past Medical History: No Reported History Additional Past Medical History / Comment(s): kidney infections History of Any Multi-Drug Resistant Organisms: None Reported Past Surgical History: No Surgical Hx Reported Past Psychological History: ADD/ADHD Smoking Status: Current every day smoker, Vaper Past Alcohol Use History: None Reported Past Drug Use History: None Reported General Exam Limitations: no limitations General appearance: alert, in no apparent distress Eye exam: Present: normal appearance Neck exam: Present: normal inspection Respiratory exam: Present: normal lung sounds bilaterally, chest wall tenderness Cardiovascular Exam: Present: tachycardia GI/Abdominal exam: Present: soft Neurological exam: Present: alert, oriented X3 Skin exam: Present: warm, dry Course Vital Signs 04/12/24 00:39 Temperature 98.1 F Pulse Rate 110 H Respiratory 18 Rate Blood Pressure 111/70 O2 Sat by Pulse 99 Oximetry Chest Pain MDM - MDM Was pt. sent in by a medical professional or institution ([facility], [facility], urgent care, hospital, or group home...) When possible be specific @ -No Did you speak to anyone other than the patient for history (EMS, parent, family, police, friend...)? What history was obtained from this source @ -No Did you review nursing and triage notes (agree or disagree)? Why? @ -I reviewed and agree with nursing and triage notes Were old charts reviewed (outside hosp., previous admission, EMS record, old EKG, old radiological studies, urgent care reports/EKG's, group home records)? Report findings @ -No old charts were reviewed Differential Diagnosis (chest pain, altered mental status, abdominal pain women, abdominal pain men, vaginal bleeding, weakness, fever, dyspnea, syncope, headache, dizziness, GI bleed, back pain, seizure, CVA, palpatations, mental health, musculoskeletal)? @ -Differential Chest Pain: Stable Angina, Unstable Angina, STEMI, NSTEMI Aortic Dissection, Pneumothorax, Musculoskeletal, Esophageal Spasm GERD, Cholecystitis, Pancreatitis, Zoster, this is not meant to be an all-inclusive list. EKG interpreted by me (3pts min.). @ -EKG interpreted me showing sinus tachycardia with nonspecific findings of the rate of 107 bpm. NM 146, QRS 81, QT/QTc 328/391. X-rays interpreted by me (1pt min.). @ -None done CT interpreted by me (1pt min.). @ -None done U/S interpreted by me (1pt. min.). @ -None done What testing was considered but not performed or refused? (CT, X-rays, U/S, labs)? Why? @ -X-ray was considered however was held until urine hCG returns as patient unsure of status. Patient is and at this time would like to hold off on x-ray. What meds were considered but not given or refused? Why? @ -None Did you discuss the management of the patient with other professionals (professionals i.e. WILL[facility] Petersen, [facility], lab, RT, psych nurse, social and political studies professor, clinical faculty, teacher, county health officer, outsole caser)? Give summary @ -No Was smoking cessation discussed for >3mins.? @ -No Was critical care preformed (if so, how long)? @ -No Were there social determinants of health that impacted care today? How? (Homelessness, low income, unemployed, alcoholism, drug addiction, transportation, low edu. Level, literacy, decrease access to med. care, shelter, rehab)? @ -No Was there de-escalation of care discussed even if they declined (Discuss DNR or withdrawal of care, Hospice)? DNR status @ -No What co-morbidities impacted this encounter? (DM, HTN, Smoking, COPD, CAD, Cancer, CVA, ARF, Chemo, Hep., AIDS, mental health diagnosis, sleep apnea, morbid obesity)? @ -None Was patient admitted / discharged? Hospital course, mention meds given and route, prescriptions, significant lab abnormalities, going to OR and other pe rtinent info. @ -Discharge 33-year-old female presenting to the ED with complaints of chest pain. Left- sided. Has been intermittent for the past week however seeming to worsen today. No recent injury or trauma. Pain worse with movement and deep breath. On examination pain reproducible. Also does note has been having some urinary frequency. Is unsure about but notes that she may be . Laboratory studies reviewed. CBC does show an elevated white blood cell count at 17.3. Chemistry panel unremarkable. D-dimer 0.59. Troponin undetectable. Urine does show evidence of infection with moderate leukocyte esterase, 41 white blood cells, rare white blood cell clumps, 9 bacteria. Urine hCG is positive. Chest pain atypical likely musculoskeletal in nature. Provided prescription for Keflex for UTI and discharged home in stable condition. With discovery of , patient counseled on smoking cessation. Advise close follow-up with [facility]. Discussed return precautions with patient who verbalized agreement. Undiagnosed new problem with uncertain prognosis? @ -No Drug Therapy requiring intensive monitoring for toxicity (Heparin, Nitro, Insulin, Cardizem)? @ -No Were any procedures done? @ -No Diagnosis/symptom? @ -Chest pain, UTI Acute, or Chronic, or Acute on Chronic? @ -Acute Uncomplicated (without systemic symptoms) or Complicated (systemic symptoms)? @ -Uncomplicated Side effects of treatment? @ -No Exacerbation, Progression, or Severe Exacerbation? @ -No Poses a threat to life or bodily function? How? (Chest pain, [place], [place], pneumonia, PE, COPD, DKA, ARF, appy, cholecystitis, CVA, Diverticulitis, Homicidal, Suicidal, threat to staff... and all critical care pts) @ -No Disposition Clinical Impression: Chest pain, UTI (urinary tract infection) Disposition: HOME SELF-CARE Instructions (If sedation given, give patient instructions): Chest Pain (ED), (ED), How to Stop Smoking (ED), Urinary Tract Infection in (ED), Electronic Cigarettes and Your Health (ED) Additional Instructions: Please return to the Emergency Department if symptoms worsen or any other concerns. Please follow-up with your PCP and [facility]. Please use Tylenol as needed for pain. Do not use ibuprofen or other NSAIDs. Prescriptions: Cephalexin [Keflex] 500 mg PO Q6HR #20 cap Is patient prescribed a controlled substance at d/c from ED?: No Referrals: None,Stated [Primary Care Provider] - 1-2 days Time of Disposition: 01:45
[2024-04-12 02:03] LABS: ALT 12 U/L (4-34); AST 18 U/L (14-36); African American GFR (CKD) >90 (>60 ml/min/1.73 sqM); Albumin 4.4 g/dL (3.5-5.0); Alkaline Phosphatase 91 U/L (38-126); Anion Gap 7 mmol/L; Blood Urea Nitrogen 9 mg/dL (7-17); Calcium 9.1 mg/dL (8.4-10.2); Carbon Dioxide 25 mmol/L (22-30); Chloride 106 mmol/L (98-107); Glucose 82 mg/dL (74-99); Magnesium 1.8 mg/dL (1.6-2.3); Non-African American GFR(CKD) >90 (>60 ml/min/1.73 sqM); Potassium 3.7 mmol/L (3.5-5.1); Sodium 138 mmol/L (137-145); Total Bilirubin 0.5 mg/dL (0.2-1.3); Total Protein 7.3 g/dL (6.3-8.2)
[2024-04-12 02:04] LABS: Basophils # (A) 0.1 k/uL (0-0.2); Basophils % (A) 0 %; Eosinophils # (A) 0.2 k/uL (0-0.7); Eosinophils % (A) 1 %; HCT 42.8 % (34.0-46.0); HGB 13.7 gm/dL (11.4-16.0); Lymphocytes # (A) 2.6 k/uL (1.0-4.8); Lymphocytes % (A) 15 %; MCH 28.4 pg (25.0-35.0); MCHC 32.1 g/dL (31.0-37.0); MCV 88.5 fL (80.0-100.0); Mean Platelet Volume 9.4; Monocytes # (A) 0.8 k/uL (0-1.0); Monocytes % (A) 5 %; Neutrophils # (A) 13.6 k/uL (1.3-7.7); Neutrophils % (A) 78 %; Platelet Count 267 k/uL (150-450); RBC 4.84 m/uL (3.80-5.40); WBC 17.3 k/uL (3.8-10.6)
[2024-04-12 02:12] LABS: INR 0.9 (<1.2); Partial Thromboplastin Time 25.2 sec (22.0-30.0); Prothrombin Time 10.5 sec (10.0-12.5)
[2024-04-12 02:14] LABS: Appearance,Urine Cloudy (Clear); Bacteria,Urine Rare /hpf; Bilirubin,Urine Negative (Negative); Blood,Urine Negative (Negative); Color,Urine Yellow; Glucose,Urine (UA) Negative (Negative); Ketones,Urine Negative (Negative); Leukocyte Esterase,Urine Moderate (Negative); Mucus,Urine Many /hpf; Nitrite,Urine Negative (Negative); PH, Urine 5.5 (5.0-8.0); Protein,Urine Trace (Negative); RBC,Urine 1 /hpf (0-5); Specific Gravity,Urine 1.023 (1.001-1.035); Squamous Epithelial Cell,Urine 9 /hpf (0-4); Urobilinogen,Urine <2.0 mg/dL (<2.0); WBC,Urine 41 /hpf (0-5)
[2024-04-12] MEDS: SODIUM CHLORIDE 0.9% 1,000 ML IV STA (02:21)
[2024-04-12] MEDS: ACETAMINOPHEN TAB 500 MG TAB PO STA (02:22)
[2024-04-12] MEDS: CEPHALEXIN 500MG STARTER PACK 4 CAP BTL PO STA (03:17)
[2024-04-12 03:19] VITALS: BP 120/77; PULSE 97
== END 2024-04-12 03:19 | disposition home or self-care (01) ==
LOC: EC 00:38
DX: R07.89 Other chest pain (principal); N39.0 Urinary tract infection, site not specified; R00.1 Bradycardia, unspecified; F17.290 Nicotine dependence, other tobacco product, uncomplicated; Z91.011 Allergy to milk products; Z88.5 Allergy status to narcotic agent
CPT/HCPCS: 36415; 80053; 81001; 81025; 83735; 84484; 85025; 85379; 85610; 85730; 93005; 96360; 99285

== ENCOUNTER 2024-12-03 02:56 | Emergency (ER) | payer OTHER ==
--- NOTE | 2024-12-03 03:24 | ED ---
General Adult HPI - General Chief complaint: Dental/Oral Stated complaint: dental pain 8.5 months Time Seen by Provider: 12/03/24 03:02 Source: patient, RN notes reviewed, old records reviewed Mode of arrival: ambulatory Limitations: no limitations - History of Present Illness Initial comments: 33-year-old female presenting with right lower dental pain. Patient has a previously fractured tooth that has been infected in the past. She completed a course of antibiotics about 3 months ago. She is currently 8-1/2 months . She has noticed some increased swelling and increased pain over the past 24 to 48 hours. No fever. Patient has no complications related to her currently. - Related Data Previous Rx's Medication Instructions Recorded Acetaminophen Tab [Tylenol] 650 mg PO Q6HR PRN tab 05/09/22 Cefdinir [Omnicef] 300 mg PO Q12HR #14 capsule 05/09/22 Cephalexin [Keflex] 500 mg PO Q6HR 7 Days #28 cap 12/12/23 Cephalexin [Keflex] 500 mg PO Q6HR #20 cap 04/12/24 Amoxicillin 500 mg PO Q12HR #20 cap 12/03/24 Allergies Allergy/AdvReac Type Severity Reaction Status Date / Time milk Allergy Swelling Verified 12/03/24 03:05 morphine AdvReac CONSTIPATIO Verified 12/03/24 03:05 N Review of Systems ROS Statement: Those systems with pertinent positive or pertinent negative responses have been documented in the HPI. ROS Other: All systems not noted in ROS Statement are negative. Past Medical History Past Medical History: No Reported History Additional Past Medical History / Comment(s): kidney infections History of Any Multi-Drug Resistant Organisms: None Reported Past Surgical History: No Surgical Hx Reported Past Psychological History: ADD/ADHD Smoking Status: Current every day smoker, Vaper Past Alcohol Use History: None Reported Past Drug Use History: None Reported General Exam Limitations: no limitations General appearance: alert, in no apparent distress Head exam: Present: atraumatic, normocephalic Eye exam: Present: normal appearance, PERRL ENT exam: Present: other (Dentition, fractured right lower molar with mild swelling at the gumline, no drainable abscess) Respiratory exam: Present: normal lung sounds bilaterally Cardiovascular Exam: Present: regular rate, normal rhythm GI/Abdominal exam: Present: soft, other (Gravid). Absent: distended, tenderness, guarding Course Vital Signs 12/03/24 02:59 Temperature 97.6 F Pulse Rate 98 Respiratory 18 Rate Blood Pressure 139/81 O2 Sat by Pulse 98 Oximetry Medical Decision Making - Medical Decision Making Was pt. sent in by a medical professional or institution ([facility], [facility], urgent care, hospital, or fdc...) When possible be specific @ -No Did you speak to anyone other than the patient for history (EMS, parent, family, police, friend...)? What history was obtained from this source @ -No Did you review nursing and triage notes (agree or disagree)? Why? @ -I reviewed and agree with nursing and triage notes Were old charts reviewed (outside hosp., previous admission, EMS record, old EKG, old radiological studies, urgent care reports/EKG's, fdc records)? Report findings @ -No old charts were reviewed Differential Diagnosis dental carry, dental abscess, acute pulpitis EKG interpreted by me (3pts min.). @ -As above X-rays interpreted by me (1pt min.). @ -None done CT interpreted by me (1pt min.). @ -None done U/S interpreted by me (1pt. min.). @ -None done What testing was considered but not performed or refused? (CT, X-rays, U/S, labs)? Why? @ -None What meds were considered but not given or refused? Why? @ -None Did you discuss the management of the patient with other professionals (professionals i.e. WILLARD Petersen, [facility], lab, RT, psych nurse, professor of social work, upscale security officer, teacher, student liaison officer, case investigator)? Give summary @ -No Was smoking cessation discussed for >3mins.? @ -No Was critical care preformed (if so, how long)? @ -No Were there social determinants of health that impacted care today? How? (Homelessness, low income, unemployed, alcoholism, drug addiction, cueto sportation, low edu. Level, literacy, decrease access to med. care, senior care, rehab)? @ -No Was there de-escalation of care discussed even if they declined (Discuss DNR or withdrawal of care, Hospice)? DNR status @ -No What co-morbidities impacted this encounter? (DM, HTN, Smoking, COPD, CAD, Cancer, CVA, ARF, Chemo, Hep., AIDS, mental health diagnosis, sleep apnea, morbid obesity)? @ -None Was patient admitted / discharged? Hospital course, mention meds given and route, prescriptions, significant lab abnormalities, going to OR and other pertinent info. @33-year-old female with dental pain, soft tissue swelling at the gumline from a previously fractured tooth right lower molar. Patient otherwise well- appearing. She started on amoxicillin will take Tylenol for pain. Undiagnosed new problem with uncertain prognosis? @ -No Drug Therapy requiring intensive monitoring for toxicity (Heparin, Nitro, Insulin, Cardizem)? @ -No Were any procedures done? @ -No Diagnosis/symptom? @ -[Toothache Acute, or Chronic, or Acute on Chronic? @ -Acute on chronic Uncomplicated (without systemic symptoms) or Complicated (systemic symptoms)? @ -[default Side effects of treatment? @ -No Exacerbation, Progression, or Severe Exacerbation? @ -No Poses a threat to life or bodily function? How? (Chest pain, [place], [place], pneumonia, PE, COPD, DKA, ARF, appy, cholecystitis, CVA, Diverticulitis, Homicidal, Suicidal, threat to staff... and all critical care pts) @ -No Disposition Clinical Impression: Fracture of tooth, Toothache Disposition: HOME SELF-CARE Condition: Fair Instructions (If sedation given, give patient instructions): Toothache (ED) Prescriptions: Amoxicillin 500 mg PO Q12HR #20 cap Is patient prescribed a controlled substance at d/c from ED?: No Referrals: None,Stated [Primary Care Provider] - 1-2 days Time of Disposition: 03:24
[2024-12-03 03:36] VITALS: BP 141/91; PULSE 92; RESP 16; TEMP 97.9
== END 2024-12-03 03:36 | disposition home or self-care (01) ==
LOC: EC 02:56
DX: O99.611 Diseases of the digestive system complicating pregnancy, first trimester (principal); S02.5XXA Fracture of tooth (traumatic), initial encounter for closed fracture; F17.290 Nicotine dependence, other tobacco product, uncomplicated; Z88.5 Allergy status to narcotic agent; Z91.011 Allergy to milk products; X58.XXXA Exposure to other specified factors, initial encounter; Z3A.08 8 weeks gestation of pregnancy
CPT/HCPCS: 99282

== ENCOUNTER 2024-12-17 18:58 | Emergency (ER) | payer OTHER ==
[2024-12-17] MEDS ORDERED: IPRATROPIUM-ALBUTEROL 3 ML NEB INHALATION STA (19:34)
--- NOTE | 2024-12-17 19:35 | ED ---
URI HPI - General Chief Complaint: Upper Respiratory Infection Stated Complaint: fever,cough Time Seen by Provider: 12/17/24 19:12 Source: patient, RN notes reviewed Mode of arrival: ambulatory Limitations: no limitations - History of Present Illness Initial Comments: This is a 33-year-old female presenting with sick symptoms x 3 days. Patient endorses fever, dry cough and sweating. Endorses recent hospitalization after giving with her baby still in the NICU. States she is currently breast- feeding. Endorses use of Mucinex and DayQuil/Tylenol with minimal relief. Dyspnea, chest pain, abdominal pain, N/V/D. MD Complaint: fever, cough Onset/Timin -: days(s) - Related Data Previous Rx's Medication Instructions Recorded Acetaminophen Tab [Tylenol] 650 mg PO Q6HR PRN tab 05/09/22 Cefdinir [Omnicef] 300 mg PO Q12HR #14 capsule 05/09/22 Cephalexin [Keflex] 500 mg PO Q6HR 7 Days #28 cap 12/12/23 Cephalexin [Keflex] 500 mg PO Q6HR #20 cap 04/12/24 Amoxicillin 500 mg PO Q12HR #20 cap 12/03/24 Allergies Allergy/AdvReac Type Severity Reaction Status Date / Time milk Allergy Swelling Verified 12/17/24 19:23 morphine AdvReac CONSTIPATIO Verified 12/17/24 19:23 N Review of Systems ROS Statement: Those systems with pertinent positive or pertinent negative responses have been documented in the HPI. ROS Other: All systems not noted in ROS Statement are negative. Past Medical History Past Medical History: No Reported History Additional Past Medical History / Comment(s): kidney infections History of Any Multi-Drug Resistant Organisms: None Reported Past Surgical History: No Surgical Hx Reported Past Psychological History: ADD/ADHD Smoking Status: Current every day smoker, Vaper Past Alcohol Use History: None Reported Past Drug Use History: None Reported General Exam Limitations: no limitations General appearance: alert, in no apparent distress Head exam: Present: atraumatic, normocephalic, normal inspection Eye exam: Present: normal appearance, PERRL, EOMI. Absent: scleral icterus, conjunctival injection, periorbital swelling ENT exam: Present: normal exam, mucous membranes moist Neck exam: Present: normal inspection. Absent: tenderness, meningismus, lymphadenopathy Respiratory exam: Present: decreased breath sounds. Absent: respiratory distress, wheezes, rales, rhonchi, stridor, accessory muscle use, prolonged expiratory Cardiovascular Exam: Present: regular rate, normal rhythm, normal heart sounds. Absent: systolic murmur, diastolic murmur, rubs, gallop, clicks GI/Abdominal exam: Present: soft, normal bowel sounds. Absent: distended, tenderness, guarding, rebound, rigid Extremities exam: Present: normal inspection, full ROM, normal capillary refill. Absent: tenderness, pedal edema, joint swelling, calf tenderness Back exam: Present: normal inspection Neurological exam: Present: alert, oriented X3, CN II-XII intact Psychiatric exam: Present: normal affect, normal mood Skin exam: Present: warm, dry, intact, normal color. Absent: rash Course Vital Signs 12/17/24 12/17/24 12/17/24 19:20 19:32 21:07 Temperature 100.1 F H 98.0 F Pulse Rate 95 Respiratory 18 19 Rate Blood Pressure 123/82 O2 Sat by Pulse 96 Oximetry 12/17/24 21:24 Temperature 98.0 F Pulse Rate 90 Respiratory 18 Rate Blood Pressure 123/81 O2 Sat by Pulse 96 Oximetry Medical Decision Making - Medical Decision Making Was pt. sent in by a medical professional or institution (, PA, [facility] GENERAL COUN[facility], urgent care, hospital, or senior living...) When possible be specific @ -No Did you speak to anyone other than the patient for history (EMS, parent, family, police, friend...)? What history was obtained from this source @ -No Did you review nursing and triage notes (agree or disagree)? Why? @ -I reviewed and agree with nursing and triage notes Were old charts reviewed (outside hosp., previous admission, EMS record, old EKG, old radiological studies, urgent care reports/EKG's, senior living records)? Report findings @ -No old charts were reviewed Differential Diagnosis (chest pain, altered mental status, abdominal pain women, abdominal pain men, vaginal bleeding, weakness, fever, dyspnea, syncope, headache, dizziness, GI bleed, back pain, seizure, CVA, palpatations, mental health, musculoskeletal)? @ -Differential Fever: Pneumonia, viral URI, endocarditis, myocarditis, pericarditis, otitis, sinusitis, peritonsillar Abscess, retropharyngeal Abscess, epiglottitis, peritonitis, appendicitis, Cristiane cystitis, diverticulitis, hepatitis, colitis, UTI, PID, TOA, pyelonephritis, prostatitis, epididymitis, meningitis, encephalitis, pulmonary embolism, CVA, thyroid storm, pancreatitis, adrenal crisis, cavernous sinus thrombosis, this is not meant to be an all-inclusive list. EKG interpreted by me (3pts min.). @ -Not done X-rays interpreted by me (1pt min.). @CXR shows no acute cardiopulmonary process CT interpreted by me (1pt min.). @ -None done U/S interpreted by me (1pt. min.). @ -None done What testing was considered but not performed or refused? (CT, X-rays, U/S, labs)? Why? @ -None What meds were considered but not given or refused? Why? @ -Consider Tamiflu but patient is outside of 48-hour window for treatment. Did you discuss the management of the patient with other professionals (professionals i.e. , PA, VP [employer] GENERAL COUNSEL, lab, RT, psych nurse, social work specialist, supervisor keymodule assembly, teacher, strike warfare/missile systems officer, protective services case worker)? Give summary @ -No Was smoking cessation discussed for >3mins.? @ -No Was critical care preformed (if so, how long)? @ -No Were there social determinants of health that impacted care today? How? (Homelessness, low income, unemployed, alcoholism, drug addiction, transportation, low edu. Level, literacy, decrease access to med. care, snf, rehab)? @ -No Was there de-escalation of care discussed even if they declined (Discuss DNR or withdrawal of care, Hospice)? DNR status @ -No What co-morbidities impacted this encounter? (DM, HTN, Smoking, COPD, CAD, Cancer, CVA, ARF, Chemo, Hep., AIDS, mental health diagnosis, sleep apnea, morbid obesity)? @ -None Was patient admitted / discharged? Hospital course, mention meds given and route, prescriptions, significant lab abnormalities, going to OR and other pertinent info. @ -Cepheid test positive for influenza A. CXR shows no acute cardiopulmonary process. Patient provided p.o. Motrin for fever and DuoNeb treatment. Patient is outside of window for Tamiflu treatment. Advised alternate Tylenol/Motrin every 4 hours for fever/pain. Coming in warm fluids for dry cough. Discussed patient with Dr. Calvert. Undiagnosed new problem with uncertain prognosis? @ -No Drug Therapy requiring intensive monitoring for toxicity (Heparin, Nitro, Insulin, Cardizem)? @ -No Were any procedures done? @ -No Diagnosis/symptom? @ -Influenza A Acute, or Chronic, or Acute on Chronic? @ -Acute Uncomplicated (without systemic symptoms) or Complicated (systemic symptoms)? @ -Complicated Side effects of treatment? @ -No Exacerbation, Progression, or Severe Exacerbation? @ -No Poses a threat to life or bodily function? How? (Chest pain, [place], [place], pneumonia, PE, COPD, DKA, ARF, appy, cholecystitis, CVA, Diverticulitis, Homicidal, Suicidal, threat to staff... and all critical care pts) @ -No - Lab Data Lab Results 12/17/24 Range/Units 19:31 Influenza Type A (PCR) Detected A (Not Detectd) Influenza Type B (PCR) Not Detected (Not Detectd) RSV (PCR) Not Detected (Not Detectd) SARS-CoV-2 (PCR) Not Detected (Not Detectd) Disposition Clinical Impression: Influenza A Disposition: HOME SELF-CARE Condition: Good Instructions (If sedation given, give patient instructions): Influenza (ED) Additional Instructions: Alternate Tylenol/Motrin every 4 hours for fever/pain. Honey and warm fluids for cough. Increase oral hydration and rest Is patient prescribed a controlled substance at d/c from ED?: No Referrals: None,Stated [Primary Care Provider] - 1-2 days Brianna Ortiz MD [STAFF PHYSICIAN] - 1-2 days Time of Disposition: 20:54
[2024-12-17] MEDS: IBUPROFEN 800 MG TAB PO STA (19:43)
--- NOTE | 2024-12-17 20:21 | XR ---
EXAMINATION TYPE: XR chest 2V DATE OF EXAM: 12/17/2024 7:57 PM COMPARISON: Chest radiograph 07/14/2023. CLINICAL INDICATION: Female, 33 years old with history of Cough, fever; [facility] TECHNIQUE: XR chest 2V Frontal and lateral views of the chest. FINDINGS: Lungs/Pleura: There is no evidence of pleural effusion, focal consolidation, or pneumothorax. Pulmonary vascularity: Unremarkable. Heart/mediastinum: Cardiomediastinal silhouette is unremarkable. Musculoskeletal: No acute osseous pathology. Other findings: None IMPRESSION: No acute cardiopulmonary disease/process. [facility], , 12/17/2024 8:19 PM
[2024-12-17 20:35] LABS: Influenza A Detected (Not Detectd); Influenza B Not Detected (Not Detectd); RSV Not Detected (Not Detectd)
[2024-12-17 21:07] VITALS: TEMP 98
[2024-12-17 21:25] VITALS: BP 123/81; PULSE 90; RESP 18
== END 2024-12-17 21:25 | disposition home or self-care (01) ==
LOC: EC 18:58
DX: J10.1 Influenza due to other identified influenza virus with other respiratory manifestations (principal); F17.290 Nicotine dependence, other tobacco product, uncomplicated
CPT/HCPCS: 71046; 87636; 99283